=== PATIENT | female | born 1975 | race Caucasian/White ===

== ENCOUNTER → 2019-07-04 17:24 | Outpatient (CLI) | payer OTHER, SELFPAY ==
[2019-07-09 17:43] LABS: HPV Reflexed? NOT INDICATED
== END ==
PROVIDERS: Family Provider Family Medicine; PCP Family Medicine; Referring Provider Family Medicine; Visit Provider Family Medicine
DX: Z12.4 Encounter for screening for malignant neoplasm of cervix (principal)
CPT/HCPCS: 88175; G0145

== ENCOUNTER → 2019-07-30 06:54 | Outpatient (CLI) | payer OTHER, SELFPAY ==
--- NOTE | 2019-07-30 06:57 | BI_ITS ---
MAMMOGRAPHY - BILATERAL SCREENING 3-D TOMOSYNTHESIS REASON FOR EXAM: Female, 44 years old. NO FM HX , CURRENT BCP USE SINCE 1998, LT SKIN TAG MARKED AXILLA AREA PERTINENT HISTORY: No significant family history. TECHNIQUE: 2-D mammograms and 3-D Tomosynthesis of the breast (s) were performed. CAD was performed. COMPARISON: November 02, 2016. FINDINGS: The breast composition is composed of scattered fibroglandular density. Scattered benign calcifications are seen. No dense spiculated masses or suspicious microcalcifications are identified. No architectural distortion is identified. There is no skin thickening or retraction. There has been no significant change since the prior study. BI/SCREEN MAMM (CAD) W/SHANIA BILAT IMPRESSION: No mammographic signs of malignancy. Routine yearly mammograms recommended. ASSESSMENT CATEGORY: BIRADS Category 2: Benign. A letter regarding these results will be sent to the patient by the facility within 30 days. FOLLOW UP RECOMMENDATION: Yearly follow up mammogram recommended. (A) Approximately 10% of breast cancers are not detected by mammography. A normal mammogram should not delay biopsy of a clinically suspicious abnormality. Electronically Signed: Kehinde Friedman MD at 9:10 EST , Service support ,
== END ==
PROVIDERS: Family Provider Family Medicine; PCP Family Medicine; Referring Provider Family Medicine; Visit Provider Family Medicine
DX: Z12.31 Encounter for screening mammogram for malignant neoplasm of breast (principal)
CPT/HCPCS: 77063; 77067

== ENCOUNTER → 2020-07-07 15:48 | Outpatient (CLI) | payer OTHER, SELFPAY ==
[2017-07-15 14:30] VITALS: BMI 22.8
[2020-07-07 18:13] LABS: Magnesium 2.4 mg/dL (1.6-2.6)
[2020-07-07 18:17] LABS: Absolute Lymphocyte Count 1.55 X10^3/uL (0.83-4.51); Absolute Neutrophil Count 2.5 X10^3/uL (2.0-7.7); Basophil# 0.01 X10^3/uL; Basophil% 0.2 % (0-1); Eosinophil# 0.06 X10^3/uL; Eosinophils% 1.4 % (0-5); Hematocrit 40.1 % (37-47); Hemoglobin 12.1 g/dL (12.0-15.0); Lymphocyte # 1.55 X10^3/ul (4.0); Lymphocyte % 35.3 % (19-41); Mean Corp Hgb Conc 30.2 g/dL (32-36); Mean Corpuscular Hgb 25.2 pg (27.0-32.0); Mean Corpuscular Volume 83.4 fL (81-99); Mean Platelet Vol. 9.9 fl (6.2-12.0); Monocyte# 0.28 X10^3/uL; Monocyte% 6.4 % (0-10); NRBC Flagged by Analyzer 0 % (0-5); Neutrophil # 2.48 X10^3/uL (2.7-7.7); Neutrophil % 56.5 % (47-70); Platelet Count 280 K/mm3 (150-450); RBC Distribution Width CV 14.6 % (11.6-14.6); RBC Distribution Width SD 44.1 fl (35.1-43.9); Red Blood Count 4.81 M/mm3 (4.2-5.4); White Blood Count 4.4 K/mm3 (4.4-11.0)
[2020-07-08 11:42] LABS: Vitamin D,25 Hydroxy 38.8 ng/mL
== END ==
PROVIDERS: PCP Family Medicine; Referring Provider Family Medicine; Visit Provider Family Medicine
DX: G35 Multiple sclerosis (principal); K21.9 Gastro-esophageal reflux disease without esophagitis; E55.9 Vitamin D deficiency, unspecified
CPT/HCPCS: 36415; 82306; 83735; 85025

== ENCOUNTER → 2020-08-06 07:01 | Outpatient (CLI) | payer OTHER, SELFPAY ==
--- NOTE | 2020-08-06 07:04 | BI_ITS ---
MAMMOGRAPHY - BILATERAL SCREENING REASON FOR EXAM: Female, 45 years old. Routine annual screening examination. PERTINENT HISTORY: Non-contributory. TECHNIQUE: Digital bilateral breast shania (3D mammographic acquisition) in the CC and MLO projections. 2-D mediolateral oblique (MLO) and craniocaudad (CC) views of both breasts were obtained. CAD: Full Field Digital Mammography with Computer Added Detection was performed. COMPARISON: Comparison is made with prior study dated 07/30/2019 and 11/02/2016. FINDINGS: Breast Composition: There are scattered areas of fibroglandular density. There are no dominant masses or suspicious calcifications. No other significant abnormalities are identified. There has been no significant change since the prior study. BI/SCREEN MAMM (CAD) W/SHANIA BILAT IMPRESSION: Stable bilateral screening mammogram. Yearly follow-up mammogram recommended. (A) ASSESSMENT CATEGORY: BIRADS Category 1: Negative. A letter regarding these results will be sent to the patient by the facility within 30 days. Approximately 10% of breast cancers are not detected by mammography. A normal mammogram should not delay biopsy of a clinically suspicious abnormality. [id number] Electronically Signed: Joaquin Mcgill, at 8:30 EST , Service support ,
== END ==
PROVIDERS: PCP Family Medicine; Referring Provider Family Medicine; Visit Provider Family Medicine
DX: Z12.31 Encounter for screening mammogram for malignant neoplasm of breast (principal)
CPT/HCPCS: 77063; 77067

== ENCOUNTER → 2021-11-24 | Outpatient (CLI) | payer OTHER, SELFPAY ==
[2021-12-01 10:37] LABS: HPV APTIMA, High Risk Negative (Negative)
[2021-12-01 10:40] LABS: HPV Reflexed? YES, CHARGE PATIENT
== END | disposition home or self-care (01) ==
PROVIDERS: PCP Family Medicine; Visit Provider Family Medicine
DX: Z12.4 Encounter for screening for malignant neoplasm of cervix (principal)
CPT/HCPCS: 87624; 88175; G0145

== ENCOUNTER → 2021-11-27 | Outpatient (CLI) | payer OTHER, SELFPAY ==
--- NOTE | 2021-11-27 07:57 | BI_ITS ---
MAMMOGRAPHY - BILATERAL SCREENING REASON FOR EXAM: Female, 46 years old. Routine annual screening examination. PERTINENT HISTORY: Non-contributory. TECHNIQUE: Digital bilateral breast shania (3D mammographic acquisition) in the CC and MLO projections. 2-D mediolateral oblique (MLO) and craniocaudad (CC) views of both breasts were obtained. CAD: Full Field Digital Mammography with Computer Added Detection was performed. COMPARISON: Comparison is made with prior study dated 08/06/2020 and 07/30/2019. FINDINGS: Breast Composition: There are scattered areas of fibroglandular density. There are no dominant masses or suspicious calcifications. No other significant abnormalities are identified. There has been no significant change since the prior study. BI/SCRN MAMM (CAD)W/SHANIA BILAT IMPRESSION: Stable bilateral screening mammogram. Yearly follow-up mammogram recommended. (A) ASSESSMENT CATEGORY: BIRADS Category 1: Negative. A letter regarding these results will be sent to the patient by the facility within 30 days. Approximately 10% of breast cancers are not detected by mammography. A normal mammogram should not delay biopsy of a clinically suspicious abnormality. [id number] Electronically Signed: Joaquin Mcgill MD at 8:51 EDT ,
== END | disposition home or self-care (01) ==
LOC: OPBI 07:56
PROVIDERS: PCP Family Medicine; Visit Provider Family Medicine
DX: Z12.31 Encounter for screening mammogram for malignant neoplasm of breast (principal)
CPT/HCPCS: 77063; 77067

== ENCOUNTER → 2022-12-21 | Outpatient (CLI) | payer OTHER, SELFPAY ==
[2022-12-30 16:09] LABS: HPV APTIMA, High Risk Negative (Negative)
[2023-01-01 17:13] LABS: HPV Reflexed? YES, CHARGE PATIENT
== END | disposition home or self-care (01) ==
PROVIDERS: PCP Family Medicine; Visit Provider Family Medicine
DX: Z12.4 Encounter for screening for malignant neoplasm of cervix (principal)
CPT/HCPCS: 87624; 88175; G0145

== ENCOUNTER → 2022-12-24 | Outpatient (CLI) | payer OTHER, SELFPAY ==
--- NOTE | 2022-12-24 15:02 | BI_ITS ---
MAMMOGRAPHY - BILATERAL SCREENING REASON FOR EXAM: Female, 47 years old. Routine annual screening examination. PERTINENT HISTORY: Non-contributory. TECHNIQUE: Digital bilateral breast shania (3D mammographic acquisition) in the CC and MLO projections. 2-D mediolateral oblique (MLO) and craniocaudad (CC) views of both breasts were obtained. CAD: Full Field Digital Mammography with Computer Added Detection was performed. COMPARISON: Comparison is made with prior examination November 27, 2021 and August 06, 2020. FINDINGS: Breast Composition: There are scattered areas of fibroglandular density. There are no dominant masses or suspicious calcifications. Small benign-appearing left axillary lymph nodes. No other significant abnormalities are identified. There has been no significant change since the prior study. BI/SCRN MAMM (CAD)W/SHANIA BILAT IMPRESSION: Stable bilateral screening mammogram. Yearly follow-up mammogram recommended. (A) ASSESSMENT CATEGORY: BIRADS Category 2: Benign. A letter regarding these results will be sent to the patient by the facility within 30 days. Approximately 10% of breast cancers are not detected by mammography. A normal mammogram should not delay biopsy of a clinically suspicious abnormality. [id number] Electronically Signed: Joaquin Mcgill MD at 13:13 EDT ,
== END | disposition home or self-care (01) ==
LOC: OPBI 15:02
PROVIDERS: PCP Family Medicine; Referring Provider Family Medicine; Visit Provider Family Medicine
DX: Z12.31 Encounter for screening mammogram for malignant neoplasm of breast (principal)
CPT/HCPCS: 77063; 77067

== ENCOUNTER → 2023-04-15 | Outpatient (CLI) | payer OTHER, SELFPAY ==
--- NOTE | 2023-04-15 11:56 | RAD_ITS ---
STUDY: X-RAY - RIGHT KNEE REASON FOR EXAM: Female, 47 years old. Pain TECHNIQUE: 4 view(s) of the knee. COMPARISON: Comparison is made with prior study June 03, 2017. FINDINGS: Normal visualized distal femur. Normal visualized proximal tibia and fibula. Normal proximal tibiofibular articulation. Normal medial femorotibial compartment. Normal lateral femorotibial compartment. Normal patellofemoral articulation. The soft tissue structures are unremarkable. RAD/Knee 4 or More Views IMPRESSION: Normal x-ray examination of the knee. Electronically Signed: Joaquin Mcgill MD at 15:22 EDT ,
== END | disposition home or self-care (01) ==
LOC: MTRAD 11:51
PROVIDERS: PCP Family Medicine; Referring Provider Family Medicine; Visit Provider Family Medicine
DX: M25.561 Pain in right knee (principal)
CPT/HCPCS: 73564

== ENCOUNTER → 2023-12-28 | Outpatient (CLI) | payer OTHER, SELFPAY ==
--- NOTE | 2023-12-28 12:23 | BI_ITS ---
MAMMOGRAPHY - BILATERAL SCREENING REASON FOR EXAM: Female, 48 years old. Routine annual screening examination. PERTINENT HISTORY: Non-contributory. TECHNIQUE: Digital bilateral breast shania (3D mammographic acquisition) in the CC and MLO projections. 2-D mediolateral oblique (MLO) and craniocaudad (CC) views of both breasts were obtained. CAD: Full Field Digital Mammography with Computer Added Detection was performed. COMPARISON: Comparison is made with prior study December 24, 2022 and November 27, 2021. FINDINGS: Breast Composition: There are scattered areas of fibroglandular density. There are no dominant masses or suspicious calcifications. No other significant abnormalities are identified. There has been no significant change since the prior study. BI/SCRN MAMM (CAD)W/SHANIA BILAT IMPRESSION: Stable bilateral screening mammogram. Yearly follow-up mammogram recommended. (A) ASSESSMENT CATEGORY: BIRADS Category 1: Negative. A letter regarding these results will be sent to the patient by the facility within 30 days. Approximately 10% of breast cancers are not detected by mammography. A normal mammogram should not delay biopsy of a clinically suspicious abnormality. [id number] Electronically Signed: Joaquin Mcgill MD at 13:29 EDT ,
== END | disposition home or self-care (01) ==
LOC: OPBI 12:23
PROVIDERS: PCP Family Medicine; Referring Provider Family Medicine; Visit Provider Family Medicine
DX: Z12.31 Encounter for screening mammogram for malignant neoplasm of breast (principal)
CPT/HCPCS: 77063; 77067

== ENCOUNTER → 2025-02-13 | Outpatient (CLI) | payer OTHER, SELFPAY ==
[2025-02-13 10:48] LABS: Hematocrit 39.4 % (37-47); Hemoglobin 12.2 g/dL (12.0-15.0); Immature Granulocytes Count 0.010 X10^3/uL (0.0-0.0); Mean Corp Hgb Conc 31.0 g/dL (32-36); Mean Corpuscular Volume 85.8 fL (81-99); Mean Platelet Vol. 9.8 fl (6.2-12.0); NRBC Flagged by Analyzer 0 % (0-5); Platelet Count 256 K/mm3 (150-450); RBC Distribution Width CV 15.4 % (11.6-14.6); RBC Distribution Width SD 48.1 fl (35.1-43.9); Red Blood Count 4.59 M/mm3 (4.2-5.4); White Blood Count 5.4 K/mm3 (4.4-11.0)
[2025-02-13 14:37] LABS: AST(SGOT) 18 U/L (<=31); Alanine Aminotransfer ALT/SGPT 14 U/L (<=34); Albumin, Serum 4.2 g/dL (3.5-5.0); Alkaline Phosphatase 59 U/L (35-104); Anion Gap 11 (5-15); BUN 10 mg/dL (4-19); BUN/Creat Ratio 12.7 RATIO (10-20); Calcium,Total 10.5 mg/dL (7.6-11.0); Carbon Dioxide 21.2 mmol/L (21.0-32.0); Chloride 105 mmol/L (98-108); Globulin 2.8 g/dL (2.2-4.2); Glucose 105 mg/dL (70-99); Potassium 3.5 mmol/L (3.3-5.1); Vitamin B12 366 pg/mL (180-914); Vitamin D,25 Hydroxy 62.5 ng/mL (30-100)
[2025-02-19 11:08] LABS: VITAMIN B6 4.0 ug/L (3.4-65.2); Vitamin B1, Thiamine 121.7 nmol/L (66.5-200.0)
== END | disposition home or self-care (01) ==
LOC: MFPLAB 08:38
PROVIDERS: PCP Family Medicine; Referring Provider Family Medicine; Visit Provider Family Medicine
DX: R73.09 Other abnormal glucose (principal)
CPT/HCPCS: 36415; 80053; 82306; 82607; 83036; 84207; 84425; 85025

== ENCOUNTER → 2025-05-20 | Outpatient (CLI) | payer OTHER, SELFPAY ==
--- OUTSIDE RECORDS SUMMARY | 2025-05-20 06:54 | XMS RPT_ITS | CCD ---
Author Organization [facility] Inform ion Partnership [facility] Care Team Providers Care Shellfish Manager Name Role Phone Lluvia Hernandes Primary Care Provider [phone] [place] KEENE, Dr. Pedro Fang Primary Care Provider [place] KEENE, Dr. Pedro Fang Attending Provider [place] KEENE, Dr. Pedro Fang Referring Provider [place] KE[place], Dr. Pedro Fang Primary Care Physician [place] KE[place], Dr. Pedro Fang Attending Physician [phone] Valery Martinez Attending Physician [phone] JOANNE LLUVAI DOROTHY Primary Care Unavailable NABIL, GONZALO Referring Unavailable JOLLIFF, LLUVIA DOROTHY Primary Care Unavailable YOUNG, GONZALO Referring Unavailable NABIL, GONZALO Attending Unavailable JOLLIFF, LLUVIA DOROTHY Primary Care Unavailable JOLLIFF, LLUVIA DOROTHY Primary Care Unavailable YOUNG, GONZALO Referring Unavailable [place] Pedro E Referring Unavailable Valery Mejia NP Attending Unavailable Pedro Delarosa E Primary Care Unavailable Pedro Delarosa E Attending Unavailable Pedro Delarosa E Referring Unavailable Pedro Delarosa E Primary Care Unavailable Kirillorrow BABY FORMULA WORKERRichard Attending Unavailable Kirillorrow BABY FORMULA WORKERRichard Referring Unavailable Pedro Delarosa E Primary Care Unavailable AllinerPedro E Referring Unavailable Schananer Pedro E Primary Care Unavailable Vineet Llanos Attending Unavailable Allergies Allergy Classification Reported Allergen(s) Allergy Type Date of Onset Reaction(s) Facility (20 sources) Amoxicillin; Translations: [AMOXICILLIN] Drug Allergy 03-27-2019 Rash [facility] (1 source) Penicillins Allergy to substance 04-26-2025 Rash [facility] (1 source) Amoxicillin Drug Allergy 03-23-2022 [facility] (1 source) Penicillins Drug allergy (disorder) 05-17-2025 [facility] Medications Current Medications Medication Drug Class(es) Dates Sig (Normalized) Sig (Original) cholecalciferol 0.05 mg oral capsule (20 sources) Vitamin D Start: 07-15-2017 take 1 capsule by mouth once Cholecalciferol (Vitamin D3) 2,000 unit capsule Active 2000 U PO ONCE July 15, 2017 1:00am Complies with drug therapy take 1 tablet by mouth once bre y Cholecalciferol, Vitamin D3, (VITAMIN D-3) 2,000 unit tab Take 2,000 Units by mouth once daily. Active Comment on above: Take 2,000 Units by mouth once daily. dimethyl fumarate 240 mg delayed release oral capsule (20 sources) Start: 04-24-2025 End: 04-24-2025 take 1 capsule by mouth twice daily Dimethyl Fumarate 240 mg capsule,delayed release(DR/EC) Active 240 mg PO TWICE A DAY April 24, 2025 9:23am Complies with drug therapy Start: 11-08-2024 End: 01-29-2025 take 1 capsule by mouth twice daily dimethyl fumarate (TECFIDERA) [address] Take 1 capsule by mouth two times a day. 180 capsule 01/29/2025 Active Start: 04-17-2024 End: 10-02-2024 take 1 capsule by mouth twice daily dimethyl fumarate (TECFIDERA) [address] Take 1 capsule by mouth two times a day. 180 capsule 11/08/2024 Active Start: 08-10-2023 End: 03-14-2024 take 1 capsule by mouth twice daily dimethyl fumarate (TECFIDERA) [address] take 1 capsule by mouth 2 times a day 60 capsule 0 03/14/2024 Active Start: 06-08-2022 End: 06-14-2023 take 1 capsule by mouth twice daily dimethyl fumarate (TECFIDERA) [address] take 1 capsule by mouth 2 times a day 60 capsule 5 06/14/2023 Active Start: 11-11-2021 take 1 capsule by [facility] twice daily dimethyl fumarate (TECFIDERA) [address] TAKE 1 CAPSULE BY MOUTH 2 TIMES A DAY 60 capsule 5 11/11/2021 Active Start: 09-29-2021 End: 11-11-2021 take 1 capsule by mouth twice daily dimethyl fumarate (TECFIDERA) [address] TAKE ONE CAPSULE BY MOUTH TWICE DAILY. 60 capsule 0 09/29/2021 11/11/2021 Discontinued Start: 07-15-2017 End: 04-24-2025 take 1 capsule by mouth twice daily Dimethyl Fumarate (Tecfidera) 120 mg capsule,delayed release(DR/EC) Discontinued 120 mg PO TWICE A DAY July 15, 2017 1:00am April 24, 2025 9:07am Comment on above: TAKE ONE CAPSULE BY MOUTH TWICE DAILY. TAKE 1 CAPSULE BY [facility] 2 TIMES A DAY Take 1 capsule (240 mg) by mouth twice daily. esomeprazole 40 mg delayed release oral capsule (20 sources) Proton Pump Inhibitor Start: take 1 capsule by mouth once daily esomeprazole (NEXIUM) 40 mg capsule Take 1 capsule by mouth once daily. 0 04/03/2013 Active Comment on above: Take 1 capsule by [facility] once daily. ethinyl estradiol 0.02 mg / norethindrone acetate 1 mg oral tablet (20 sources) Estrogen Start: 5 Norethindrone Ac-Eth Estradiol (Junel 08/20 ()) 1-20 mg-mcg tablet Active 1 {tbl} PO daily April 24, 2025 12:00am Complies with drug therapy Start: 04-03-2013 take 0.05 ug by mouth once Nor ethindrone Acet-Ethinyl Est (MICROGESTIN 08/20) 1-20 mg-mcg per tablet Take 1 tablet by mouth once daily. 0 04/03/2013 Active Comment on above: Take 1 tablet by [facility] once daily. fluticasone propionate 0.05 mg/actuat metered dose nasal spray (1 source) Corticosteroid Start: 025 take 50 ug nasal route once daily Fluticasone Propionate (Flonase Allergy Relief) 50 mcg/actuation spray,suspension Active 1 NMA INTRANASAL daily April 24, 2025 12:00am administer into each nostril Complies with drug therapy iv contrast (will be provided with radiology test) (3 sources) Start: End: 09-18-2 024 inject 1 dose intravenously once iv contrast (will be provided with radiology test) MRI Brain Inject, intravenously, once for 1 dose.No IV access, insert saline lock prior to beginning of sedation, infusion, injection of imaging exam.Discontinue saline lock post exam. If Pt. has a central line or IVAD, may access for administration according to line specific nursing protocol.Once exam is complete flush line and de-access according to line specific nursing protocol in the MR contrast administration guidelines link 1 Each 04/17/2024 04/18/2024 Active Start: 11-02-2021 End: 11-03-2021 inject 1 dose intravenously once iv contrast (will be provided with radiology test) MRI Brain Inject, intravenously, once for 1 dose.No IV access, insert saline lock prior to beginning of sedation, infusion, injection of imaging exam.Discontinue saline lock post exam. If Pt. has a central line or IVAD, may access for administration according to line specific nursing protocol.Once exam is complete flush line and de-access according to line specific nursing protocol in the MR contrast administration guidelines link 1 Each 0 11/02/2021 11/03/2021 Active Start: 11-02-2021 End: 11-03-2021 iv contrast (will be provide d with radiology test) MRI CSP Inject, intravenously, once for 1 dose. No IV access, insert saline lock prior to the beginning of sedation, infusion, injection of imaging exam. Discontinue saline lock post exam. If Pt. has a central line or IVAD, may access for administration according to line specific nursing protocol. Once exam is complete flush line and de-access according to line specific nursing protocol in the MR contrast administration guidelines link. 1 Each 0 11/02/2021 11/03/2021 Active Comment on above: MRI Brain Inject, in travenously, once for 1 dose.No IV access, insert saline lock prior to beginning of sedation, infusion, injection of imaging exam.Discontinue saline lock post exam. If Pt. has a central line or IVAD, may access for administration according to line specific nursing protocol.Once exam is complete flush line and de-access according to line specific nursing protocol in the MR contrast administration guidelines link MRI CSP Inject, intr avenously, once for 1 dose. No IV access, insert saline lock prior to the beginning of sedation, infusion, injection of imaging exam. Discontinue saline lock post exam. If Pt. has a central line or IVAD, may access for administration according to line specific nursing protocol. Once exam is complete flush line and de-access according to line specific nursing protocol in the MR contrast administration guidelines link. lansoprazole 30 mg delayed release oral capsule (7 sources) Proton Pump Inhibitor Start: 04-24-20 take 1 capsule by mouth once daily Lansoprazole 30 mg capsule,delayed release(DR/EC) Active 30 mg PO daily April 24, 2025 9:05am Complies with drug therapy Start: 07-15-2017 End: 04-24-2025 take 1 capsule by mouth twice daily Lansoprazole 30 mg capsule,delayed release(DR/EC) Discontinued 30 mg PO TWICE A DAY July 15, 2017 1:00am April 24, 2025 9:07am levocetirizine dihydrochloride 5 mg oral tablet (20 sources) Histamine-1 Receptor Antagonist Start: 04-24-2025 take 1 tablet by mouth once daily Levocetirizine (Xyzal) 5 mg tablet Active 5 mg PO daily April 24, 2025 12:00am Complies with drug therapy levocetirizine d ihydrochloride (XYZAL ORAL) Take by mouth. Active levocetirizine d ihydrochloride (XYZAL ORAL) Take by mouth. 0 Active Comment on above: Take by mouth. melatonin 10 mg oral tablet (1 source) Start: 04-24-2025 take 1 tablet by mouth at bedtime as needed Melatonin 10 mg tablet Active 10 mg PO BEDTIME as needed April 24, 2025 12:00am Complies with drug therapy Problems Active Problems Problem Classification Problem Date Documented Date Episodic/Chronic Diabetes mellitus without complication (1 source) Other abnormal glucose; Translations: [Other abnormal glucose] Onset: 02-18-2025 Episodic Malaise and fatigue (3 sources) Malaise and fatigue; Translations: [Other malaise] Onset: 05-14-2025 07-04-2024 Episodic Menstrual disorders (4 sources) Oligomenorrhea; Translations: [Oligomenorrhea, unspecified] Onset: 04-26-2025 04-24-2025 Chronic Multiple sclerosis (20 sources) Multiple sclerosis; Translations: [Multiple sclerosis] Onset: 04-06-2013 04-06-2013 Chronic Nutritional deficiencies (3 sources) Vitamin D deficiency; Translations: [Vitamin D deficiency, unspecified] Onset: 07-06-2024 Chronic Other aftercare (1 source) Patient encounter status; Translations: [Encounter for therapeutic drug level monitoring] Episodic Other nervous system disorders (1 source) Demyelinating disease of central nervous system; Translations: [Demyelinating disease of central nervous system, unspecified] Chronic Other screening for suspected conditions (not mental disorders or infectious disease) (1 source) Encounter for screening mammogram for malignant neoplasm of breast; Translations: [Encounter for screening mammogram for malignant neoplasm of breast] Onset: 05-17-2025 Episodic Past or Other Problems Problem Classification Problem Date Documented Date Episodic/Chronic Other aftercare (11 sources) Drug therapy finding; Translations: [Encounter for therapeutic drug level monitoring] Onset: 03-09-2015 03-09-2015 Episodic Other aftercare (11 sources) Long-term current use of drug therapy; Translations: [Encounter for therapeutic drug level monitoring] Onset: 03-09-2015 03-09-2015 Episodic Other complications of (20 sources) Other specified diseases and conditions complicating , childbirth and the puerperium; Translations: [Other specified complications of , antepartum condition or complication] Onset: 11-27-2003 11-27-2003 Episodic Results Test Name Value Interpretation Reference Range Facility Urgent Care Visit Reporton 1 Urgent Care Visit Report [facility] [address], [address] [place] [address] OFFICE VISIT Date of Service: 05/17/25 MR#: [id number] Acct: [id number] Name: RICARDOANNADIANE BUSH Rep #: [id number] : 1975 Provider: ARCELIA Villafana Age/Sex: 49/F Location: [facility] Status: Signed Intake Vital Signs 04/24/25 09:12 05/17/25 06:38 Height 5 ft 2 in 5 ft 2 in Weight: 136 lb 134 lb 4 oz BMI 24.8 24.5 BP 127/89 H 102/64 Blood Pressure Location Lt brachial Lt brachial Position Sitting Sitting Respiration 16 Pulse 85 82 Pulse Source NIBP NIBP Temp 98.6 F Temp Source Oral Pulse Oximetry (%) 100 Oxygen Delivery Method room air Intake Visit Reasons: SORE THROAT, CONGESTION Chief Complaint: ST, SIMENTAL, BA, congestion, ear/face pain Waiter/Waitress Required: No Is patient in pain?: No Allergies Penicillins Allergy (Mild, Verified 05/17/25 06:39) Rash Medications ???Medication ???Instructions ???Recorded ???Confirmed ???Type cholecalciferol (vitamin D3) 50 2,000 unit PO ONCE 07/15/17 History mcg (2,000 unit) capsule dimethyl fumarate 240 mg 240 mg PO BID 04/24/25 05/17/25 Hi story capsule,delayed release fluticasone propionate 50 1 spray intranasal QDAY 04/24/25 1 History mcg/actuation nasal spray,suspension (Flonase Allergy Relief) lansoprazole 30 mg capsule,delayed 30 mg PO QDAY 04/24/25 05/17/25 History release levocetirizine 5 mg tablet (Xyzal) 5 mg PO QDAY 04/24/25 05/17/25 H istory melatonin 10 mg tablet 10 mg PO HS PRN 04/24/25 05/17/25 History norethindrone acetate 1 mg-ethinyl 1 tab PO QDAY 04/24/25 05/17/25 History estradiol 20 mcg tablet (Junel) doxycycline monohydrate 100 mg 100 mg PO BID 10 days #20 caps 05/17/25 Rx capsule ipratropium bromide 21 mcg (0.03 2 spray intranasal BID-TID PRN 05/17/25 Rx %) nasal spray postnasal drainage #30 mL Is last menstrual period known: No Post menopausal: No Patient : No Have you fallen in the past year?: No Nurse's Note: ST, SIMENTAL, BA, congestion, ear/face pain x 48 hours. pt has been sick "on and off" for over a month with only a few days between illnesses. denies fever. 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 Smoking Status: Never smoker alcohol intake: current alcohol intake frequency: a few times a week details: 1-3 per week substance use type: does not use do you feel safe at home: Yes additional social history: . [employer]. 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 HPI HPI Chief Complaint: ST, SIMENTAL, BA, congestion, ear/face pain Details: DIANE TEE, is a 49 F who presents to the office today for complaint of sore throat, headache, body aches and sinus pressure pain particular to the left side of her face. Patient states this has been ongoing for the past several days however states that she has had intermittent illness episodes over the past month. She denies fever, chills or sweats. No nausea, vomiting or diarrhea. No hemoptysis, shortness of breath or difficulty breathing. No other associated symptoms or alleviating/aggravat ing factors. ROS Const Constitutional: No other (6 system ROS completed with pertinent findings in the HPI otherwise normal.) Exam Const General: cooperative and healthy appearing HENSC Head: normal to inspection Ears: hearing grossly normal bilaterally, TM's normal bilaterally and EAC's normal Nose: nasal discharge purulent Face and sinus: sinus tenderness frontal and maxillary Mouth: oral mucosae normal Throat: abnormal tonsil bilaterally erythema and hypertrophy 1+ and postnasal drainage Resp Effort Inspection: normal respiratory effort Auscultation: Bilateral: Clear to Auscultation Cardio Palpation: normal PMI Rate: regular rate Rhythm: regular rhythm Neuro General: patient alert and CN's II-XI intact bilaterally Psych Appearance: grossly normal Mental Status: mental status grossly normal Coding Level of Care Code Off vis,new,level 3 Diagnoses Acute sinusitis J01.90 Assessment and Plan Assessment and Plan (1) Acute sinusitis: Status: Acute Plan: Doxycycline and Atrovent as prescribed today. Encouraged to get plenty of rest, drink lots of clear liquids, and use Tylenol or Ibuprofen (unless contraindi (more content not included)... Normal [facility] CBC W Auto Differential pane l (Bld)on 05-14-2025 Basophils (Bld) [#/Vol] 10*3/uL Normal <0.11 C [facility] Comment on above: Order Comment: Speci men Type: BLOOD SPECIMEN Ordering Facility: [facility] Address: [address] [place] [address] Performed By: #### 5 7021-8 #### [facility] CLIA [id number] [address] [place] [address] [place] Basophils/100 WBC (Bld) 0.4 % Normal C [facility] Comment on above: Order Comment: Speci men Type: BLOOD SPECIMEN Ordering Facility: [facility] Address: [address] [place] [address] Performed By: #### 5 7021-8 #### [facility] CLIA [id number] [address] [place] [address] [place] Differential cell count method Nom (Bld) Auto Normal [facility] Comment on above: Order Comment: Speci men Type: BLOOD SPECIMEN Ordering Facility: [facility] Address: [address] [place] [address] Performed By: #### 5 7021-8 #### [facility] CLIA [id number] [address] [place] [address] [place] Eosinophils (Bld) [#/Vol] 0.03 10*3/uL Normal <0.46 [facility] Comment on above: Order Comment: Speci men Type: BLOOD SPECIMEN Ordering Facility: [facility] Address: [address] [place] [address] Performed By: #### 5 7021-8 #### [facility] CLIA [id number] [address] [place] [address] [place] Eosinophils/100 WBC (Bld) 0.6 % Normal [facility] Comment on above: Order Comment: Speci men Type: BLOOD SPECIMEN Ordering Facility: [facility] Address: [address] [place] [address] Performed By: #### 5 7021-8 #### [facility] CLIA [id number] [address] [place] [address] [place] Erythrocyte distribution width (RBC) [Ratio] 14.1 % Normal 11.5-15.0 [facility] Comment on above: Order Comment: Speci men Type: BLOOD SPECIMEN Ordering Facility: [facility] Address: [address] [place] [address] Performed By: #### 5 7021-8 #### [facility] CLIA [id number] [address] [place] [address] [place] Hematocrit (Bld) [Volume fraction] 40.3 % Normal 36.0-46.0 [facility] Comment on above: Order Comment: Speci men Type: BLOOD SPECIMEN Ordering Facility: [facility] Address: [address] [place] [address] Performed By: #### 5 7021-8 #### [facility] CLIA [id number] [address] [place] [address] [place] Hemoglobin (Bld) [Mass/Vol] 12.7 g/dL Normal 11.5-15.5 [facility] Comment on above: Order Comment: Speci men Type: BLOOD SPECIMEN Ordering Facility: [facility] Address: [address] [place] [address] Performed By: #### 5 7021-8 #### [facility] CLIA [id number] [address] [place] [address] [place] Immature granulocytes (Bld) [#/Vol] 0.08 10*3/uL Normal <0.10 [facility] Comment on above: Order Comment: Speci men Type: BLOOD SPECIMEN Ordering Facility: [facility] Address: [address] [place] [address] Performed By: #### 5 7021-8 #### [facility] CLIA [id number] [address] [place] [address] [place] Immature granulocytes/100 WBC (Bld) 1.6 % Normal [facility] Comment on above: Order Comment: Speci men Type: BLOOD SPECIMEN Ordering Facility: [facility] Address: [address] [place], [place] [address] Performed By: #### 5 7021-8 #### [facility] CLIA [id number] [address] [place] [address] [place] Lymphocytes (Bld) [#/Vol] 1.92 10*3/uL Normal 1.00-4.00 [facility] Comment on above: Order Comment: Speci men Type: BLOOD SPECIMEN Ordering Facility: [facility] Address: [address] [place] [address] Performed By: #### 5 7021-8 #### [facility] CLIA [id number] [address] [place] [address] [place] Lymphocytes/100 WBC (Bld) 38.6 % Normal [facility] Comment on above: Order Comment: Speci men Type: BLOOD SPECIMEN Ordering Facility: [facility] Address: [address] [place] [address] Performed By: #### 5 7021-8 #### [facility] CLIA [id number] [address] [place] [address] [place] MCH (RBC) [Entitic mass] 27.0 pg Normal 26.0-34.0 [facility] Comment on above: Order Comment: Speci men Type: BLOOD SPECIMEN Ordering Facility: [facility] Address: [address] [place] [address] Performed By: #### 5 7021-8 #### [facility] CLIA [id number] [address] [place] [address] [place] MCHC (RBC) [Mass/Vol] 31.5 g/dL Normal 30.5-36.0 [facility] Comment on above: Order Comment: Speci men Type: BLOOD SPECIMEN Ordering Facility: [facility] Address: [address] [place] [address] Performed By: #### 5 7021-8 #### [facility] CLIA [id number] [address] [place] [address] [place] MCV (RBC) [Entitic vol] 85.6 fL Normal 80.0-100.0 C [facility] Comment on above: Order Comment: Speci men Type: BLOOD SPECIMEN Ordering Facility: [facility] Address: [address] [place] [address] Performed By: #### 5 7021-8 #### [facility] CLIA [id number] [address] [place] [address] [place] Monocytes (Bld) [#/Vol] 0.36 10*3/uL Normal <0.87 [facility] Comment on above: Order Comment: Speci men Type: BLOOD SPECIMEN Ordering Facility: [facility] Address: [address] [place] [address] Performed By: #### 5 7021-8 #### [facility] CLIA [id number] [address] [place] [address] [place] Monocytes/100 WBC (Bld) 7.2 % Normal C [facility] Comment on above: Order Comment: Speci men Type: BLOOD SPECIMEN Ordering Facility: [facility] Address: [address] [place] [address] Performed By: #### 5 7021-8 #### [facility] CLIA [id number] [address] [place] [address] [place] Neutrophils (Bld) [#/Vol] 2.57 10*3/uL Normal 1.45-7.50 [facility] Comment on above: Order Comment: Speci men Type: BLOOD SPECIMEN Ordering Facility: [facility] Address: [address] [place] [address] Performed By: #### 5 7021-8 #### [facility] CLIA [id number] [address] [place] [address] [place] Neutrophils/100 WBC (Bld) 51.6 % Normal [facility] Comment on above: Order Comment: Speci men Type: BLOOD SPECIMEN Ordering Facility: [facility] Address: [address] [place] [address] Performed By: #### 5 7021-8 #### [facility] CLIA [id number] [address] [place] [address] [place] Nucleated RBC (Bld) [#/Vol] 10*3/uL Normal <0.01 [facility] Comment on above: Order Comment: Speci men Type: BLOOD SPECIMEN Ordering Facility: [facility] Address: [address] [place] [address] Performed By: #### 5 7021-8 #### [facility] CLIA [id number] [address] [place] [address] [place] Nucleated RBC/100 WBC (Bld) [Ratio] 0.0 /100 WBC Normal [facility] Comment on above: Order Comment: Speci men Type: BLOOD SPECIMEN Ordering Facility: [facility] Address: [address] [place] [address] Performed By: #### 5 7021-8 #### [facility] CLIA [id number] [address] [place] [address] [place] Platelet mean volume (Bld) [Entitic vol] 9.7 fL Normal 9.0-12.7 [facility] Comment on above: Order Comment: Speci men Type: BLOOD SPECIMEN [facility] [place] Address: [address] [place] [address] Performed By: #### 5 7021-8 #### [facility] CLIA [id number] [address] [place] [address] [place] Platelets (Bld) [#/Vol] 272 10*3/uL Normal 150-400 [facility] Comment on above: Order Comment: Speci men Type: BLOOD SPECIMEN Ordering Facility: [facility] Address: [address] [place] [address] Performed By: #### 5 7021-8 #### [facility] CLIA [id number] [address] [place] [address] [place] RBC (Bld) [#/Vol] 4.71 10*6/uL Normal 3.90-5.20 [facility] Comment on above: Order Comment: Speci men Type: BLOOD SPECIMEN Ordering Facility: [facility] Address: [address] [place] [address] Performed By: #### 5 7021-8 #### [facility] CLIA [id number] [address] [place] [address] [place] WBC (Bld) [#/Vol] 4.98 10*3/uL Normal 3.70-11.00 [facility] Comment on above: Order Comment: Speci men Type: BLOOD SPECIMEN Ordering Facility: [facility] Address: [address] [place] [address] Performed By: #### 5 7021-8 #### [facility] CLIA [id number] [address] [place] [address] [place] Hepatic function 2000 panelo n 05-14-2025 Albumin [Mass/Vol] 4.6 g/dL Normal 3.9-4.9 [facility] Comment on above: Order Comment: Speci men Type: BLOOD SPECIMEN Ordering Facility: [facility] Address: [address] [place] [address] Performed By: #### 2 4325-3, 2132-04 #### [facility] CLIA [id number] [address] [place] [address] [place] ALP [Catalytic activity/Vol] 71 U/L Normal 34-123 [facility] Comment on above: Order Comment: Speci men Type: BLOOD SPECIMEN Ordering Facility: [facility] Address: [address] [place] [address] Performed By: #### 2 4325-3, 2132-04 #### [facility] CLIA [id number] [address] [place] [address] [place] ALT [Catalytic activity/Vol] 17 U/L Normal 7-38 [facility] Comment on above: Order Comment: Speci men Type: BLOOD SPECIMEN Ordering Facility: [facility] Address: [address] [place] [address] Performed By: #### 2 4325-3, 2132-04 #### [facility] CLIA [id number] [address] [place] [address] [place] AST [Catalytic activity/Vol] 19 U/L Normal 13-35 [facility] Comment on above: Order Comment: Speci men Type: BLOOD SPECIMEN Ordering Facility: [facility] Address: [address] [place] [address] Performed By: #### 2 4323, 2132-04 #### [facility] CLIA [id number] [address] [place] [address] [place] Bilirubin [Mass/Vol] 0.2 mg/dL Normal 0.2-1.3 [facility] Comment on above: Order Comment: Speci men Type: BLOOD SPECIMEN Ordering Facility: [facility] Address: [address] [place] [address] Performed By: #### 2 4323, 2132-04 #### [facility] CLIA [id number] [address] [place] [address] [place] Bilirubin.conjugated [Mass/Vol] 0.1 mg/dL Normal <0.3 [facility] Comment on above: Order Comment: Speci men Type: BLOOD SPECIMEN Ordering Facility: [facility] Address: [address] [place] [address] Performed By: #### 2 3, 2132-04 #### [facility] CLIA [id number] [address] [place] [address] [place] Protein [Mass/Vol] 7.1 g/dL Normal 6.3-8.0 [facility] Comment on above: Order Comment: Speci men Type: BLOOD SPECIMEN Ordering Facility: [facility] Address: [address] [place] [address] Performed By: #### 2 3, 2132-04 #### [facility] CLIA [id number] [address] [place] [address] [place] Vit B12 [facility] 10-14-2 025 Cobalamin (Vitamin B12) [Mass/Vol] 623 pg/mL Normal 232-1245 [facility] Comment on above: Order Comment: Speci men Type: BLOOD SPECIMEN Ordering Facility: [facility] Address: [address] [place] [address] Performed By: #### 2 4325-3, 2132-9 #### [facility] CLIA [id number] [address] [place] [address] [place] [facility] Agent Office Visit Reporton 04-24-2025 [facility] Agent Office Visit Report [facility] [address], [address] [place] [address] OFFICE VISIT Date of Service: 04/24/25 MR#: [id number] Acct: [id number] Name: DIANE TEE Rep #: [id number] : 1975 Provider: MARISOL fajardo Age/Sex: 49/F Location: [facility] Status: Signed Intake Vital Signs 04/24/25 09:03 04/24/25 09:12 Height 5 ft 2 in 5 ft 2 in Weight: 136 lb BMI 24.8 BP 127/89 H Blood Pressure Location Lt brachial Position Sitting Pulse 85 Pulse Source NIBP 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 Accompanied by: Self Is patient in pain?: No Feel stressed/tense/nervo us/anxious/difficult y sleeping: not at all Allergies amoxicillin Allergy (Mild, Verified 04/24/25 09:05) Rash Medications ???Medication ???Instructions ???Recorded ???Confirmed ???Type cholecalciferol (vitamin D3) 50 2,000 unit PO ONCE 07/15/17 History mcg (2,000 unit) capsule dimethyl fumarate 240 mg 240 mg PO BID 04/24/25 04/24/25 Hi story capsule,delayed release fluticasone propionate 50 1 spray intranasal QDAY 04/24/25 0 04/24/25 History mcg/actuation nasal spray,suspension (Flonase Allergy Relief) lansoprazole 30 mg capsule,delayed 30 mg PO QDAY 04/24/25 04/24/25 History release levocetirizine 5 mg tablet (Xyzal) 5 mg PO QDAY 04/24/25 04/24/25 H istory melatonin 10 mg tablet 10 mg PO HS PRN 04/24/25 04/24/25 History norethindrone acetate 1 mg-ethinyl 1 tab PO QDAY 04/24/25 04/24/25 History estradiol 20 mcg tablet () Is last menstrual period known: Yes Last Menstrual Period: 04/17/25 Control Method: PFS Medical History (Updated 04/24/25 @ 09:30 by Valery Mejia 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 current gender identity: female Smoking Status: Never smoker alcohol intake: current alcohol intake frequency: a few times a week details: 1-3 per week substance use type: does not use do you feel safe at home: Yes additional social history: . Rubén. 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 History Past Pregnancies Del. Date Name GA/Weeks Outcome Route Bth Weight [facility]ant [facility]24[facility]02 28 still 04/09/03 12 spontaneous 04/02/04 Chris live - full term 11/09/05 Carol live - full term HPI Encounter for routine gynecological examination Details: DIANE TEE is a 49 year old who presents for annual exam. Denies concerns. Is on OCP, no menses typically during placebo week. Last PAP: 2022 History of abnormal PAP: no Last mammogram: 2023 History of abnormal mammogram: no Colon cancer screenin Other preventative health care screenings: Luz Female Reproductive History Last Menstrual Period: 04/17/25 Questions: metrorrhagia: No, sexually active: Yes, dyspareunia: No and PCB: No ROS Const Constitutional: Denies fatigue, weight gain or weight loss Cardio Card: Denies chest pain Resp Resp: Denies cough or dyspnea on exertion GI GI: Denies abdominal pain, bloating, change in stool character, constipation or vomiting : Reports as per HPI; Denies difficulty voiding, pelvic pain, urinary frequency, urinary incontinence, urinary urgency, vaginal discharge or vaginal pruritus Exam Const General: cooperative, healthy appearing, no acute distress and well developed Orientation: alert, oriented to person and oriented to place [facility] Head: normal to inspection Neck Neck: normal visual inspection Thyroid: thyroid normal Lymphatic: no lymphadenopathy noted Chest Breast inspection: normal inspection of the breasts and normal inspection of the axillae Breast palpation: normal palpation of the breasts, normal palpation of the axillae and no axillary lymphadenopathy Resp Effort Inspection: normal respiratory effort GI Palpation: soft, no masses and nontender Rectal Exam: deferred External Female Exam: normal external appearance and normal appearance of the urethra Urethra: normal appearance of the urethra and normal palpation Speculum Exam - Vagina: normal appearance of the vagina and normal vaginal discharge Speculum Exam - Cervix: normal appearance of the cervix Bimanual Exam- Vagina Uterus: normal bimanual exam, uterine size normal, uterine shape normal and non-tender Bimanual Exam- Adnexa, other: normal a (more content not included)... Normal [facility] L3300.8200on 02-19-2025 VITAMIN B6 4.0 ug/L Normal 3.4-65.2 [facility] Comment on above: Order Comment: Test( s) 772223-Wlkzvca B6 was developed and its performance characteristics determined by [facility]. It has not been cleared or approved by the Food and Drug Administration. Result Comment: Defi ciency: <3.4 Marginal: 3.4 - 5.1 Adequate: >5.1 Performed By: #### L 3300.8200, L501.9985, L3300.8000, L503.0106, L506.1001 #### [facility] [address] [place], [place], [address] Vitamin B1, Thiamineon 02-19 VIT B1 THIAMINE 121.7 nmol/L Normal 66.5-200.0 [facility] Comment on above: Order Comment: Test( s) 650330-Mageidp B6 was developed and its performance characteristics determined by [facility]. It has not been cleared or approved by the Food and Drug Administration. Result Comment: Perf ormed at: - [facility] [id number] Finisher Hand: Demetrice Peterson MD, Phone: [phone] Performed By: #### L 3300.8200, L501.9985, L3300.8000, L503.0106, L506.1001 #### [facility] [address] [place], [place], [id number] Hemoglobin A1con 02-14-2025 HbA1c (Bld) [Mass fraction] 4.8 % Normal <=5.6 [facility] Comment on above: Order Comment: ALEXIS Fang ADD A1C TO BLOOD DRAWN 02/13/25 PER Result Comment: Norm al < 5.7 % Prediabetic 5.7 - 6.4 % Diabetic >or= 6.5 % Please note range changes. Performed By: #### L 3300.8200, L501.9985, L3300.8000, L503.0106, L506.1001 #### [facility] [address] [place], [place], [id number] Absolute lymphocyte countOrd ered By: Pedro Delarosa on 02-13-2025 Lymphocytes Auto (Unsp spec) [#/Vol] 1.44 10*3/uL 0.83-4.51 [facility] Absolute neutrophil countOrd ered By: Pedro Delarosa on 02-13-2025 Neutrophils (Bld) [#/Vol] 3.7 10*3/uL 2.0-7.7 [facility] Anion gap in Serum or Plasma Ordered By: Pedro Delarosa on 02-13-2025 Anion gap [Moles/Vol] 11 mmol/L 5-15 [facility] Automated lymphocyte count a s percentage of total leukocytesOrdered By: Pedro Delarosa on 02-13-2025 Lymphocytes/100 WBC Auto (Unsp spec) 26.8 % - [facility] BUN/creatinine ratioOrdered By: Pedro Delarosa on 02-13-2025 Urea nitrogen/Creatinine [Mass ratio] 12.7 mg/mg 10-20 [facility] Basophil percentageOrdered B y: Pedro Delarosa on 02-13-2025 Basophils/100 WBC (Bld) 0.2 % 0-1 [facility] Bilirubin, totalOrdered By: Pedro Delarosa on 02-13-2025 Bilirubin [Mass/Vol] 0.32 mg/dL 0.00-1.30 [facility] CBC W/Diff, Automatedon 01-29 Absolute Lymph 1.44 X10 3/uL Normal 0.83-4.51 [facility] Comment on above: Order Comment: Order Date: 02/13/25 Order Info: 0184-1 - CBCD Performed By: #### L 500.4050, L100.0100 #### [facility] [address] [place], [address] Absolute Neut 3.7 X10 3/uL Normal 2.0-7.7 [facility] Comment on above: Order Comment: Order Date: 02/13/25 Order Info: 0184-1 - CBCD Performed By: #### L 500.4050, L100.0100 #### [facility] [address] [place], [address] Basophils/100 WBC (Bld) 0.2 % Normal 0-1 [facility] Comment on above: Order Comment: Order Date: 02/13/25 Order Info: 0184-1 - CBCD Performed By: #### L 500.4050, L100.0100 #### [facility] [address] [place], [address] Eosinophils/100 WBC (Bld) 0.4 % Normal 0-5 [facility] Comment on above: Order Comment: Order Date: 02/13/25 Order Info: 0184-1 - CBCD Performed By: #### L 500.4050, L100.0100 #### [facility] [address] [place], [address] Erythrocyte distribution width (RBC) [Ratio] 15.4 % High 11.6-14.6 [facility] Comment on above: Order Comment: Order Date: 02/13/25 Order Info: 0184-1 - CBCD Performed By: #### L 500.4050, L100.0100 #### [facility] [address] [place], [address] Hematocrit (Bld) [Volume fraction] 39.4 % Normal 37-47 [facility] Comment on above: Order Comment: Order Date: 02/13/25 Order Info: 018- - CBCD Performed By: #### L 500.4050, L100.0100 #### [facility] [address] [place], [address] Hemoglobin (Bld) [Mass/Vol] 12.2 g/dL Normal 12.0-15.0 [facility] Comment on above: Order Comment: Order Date: 02/13/25 Order Info: 0184- - CBCD Performed By: #### L 500.4050, L100.0100 #### [facility] [address] [place], [address] IG% 0.200 Normal 0.0-0.9 [facility] Comment on above: Order Comment: Order Date: 02/13/25 Order Info: 0184- - CBCD Result Comment: IG% - Immature Granulocytes (promyelocytes, myelocytes and metamyelocytes) > 1% indicates that a LEFT SHIFT is Present. Performed By: #### L 500.4050, L100.0100 #### [facility] [address] [place], [address] Lymphocytes/100 WBC (Bld) 26.8 % Normal 19-41 [facility] Comment on above: Order Comment: Order Date: 02/13/25 Order Info: 0184- - CBCD Performed By: #### L 500.4050, L100.0100 #### [facility] [address] [place], [address] MCH (RBC) [Entitic mass] 26.6 pg Low 27.0-32.0 [facility] Comment on above: Order Comment: Order Date: 02/13/25 Order Info: 0184-1 - CBCD Performed By: #### L 500.4050, L100.0100 #### [facility] [address] [place], [address] MCHC (RBC) [Mass/Vol] 31.0 g/dL Low 32-36 [facility] Comment on above: Order Comment: Order Date: 02/13/25 Order Info: 0184-1 - CBCD Performed By: #### L 500.4050, L100.0100 #### [facility] [address] [place], [address] MCV (RBC) [Entitic vol] 85.8 fL Normal 81-99 [facility] Comment on above: Order Comment: Order Date: 02/13/25 Order Info: 0184-1 - CBCD Performed By: #### L 500.4050, L100.0100 #### [facility] [address] [place], [address] Monocytes/100 WBC (Bld) 4.5 % Normal 0-10 [facility] Comment on above: Order Comment: Order Date: 02/13/25 Order Info: 0184-1 - CBCD Performed By: #### L 500.4050, L100.0100 #### [facility] [address] [place], [address] Neutrophils/100 WBC (Bld) 67.9 % Normal 47-70 [facility] Comment on above: Order Comment: Order Date: 02/13/25 Order Info: 0184-1 - CBCD Performed By: #### L 500.4050, L100.0100 #### [facility] [address] [place], [address] Nucleated RBC (Bld) [#/Vol] 0 10*3/uL Normal 0-5 [facility] Comment on above: Order Comment: Order Date: 02/13/25 Order Info: 0184-1 - CBCD Performed By: #### L 500.4050, L100.0100 #### [facility] [address] [place], [address] Platelet mean volume (Bld) [Entitic vol] 9.8 fL Normal 6.2-12.0 [facility] Comment on above: Order Comment: Order Date: 02/13/25 Order Info: 0184-1 - CBCD Performed By: #### L 500.4050, L100.0100 #### [facility] [address] [place], [address] Platelets (Bld) [#/Vol] 256 10*3/uL Normal 150-450 [facility] Comment on above: Order Comment: Order Date: 02/13/25 Order Info: 0184-1 - CBCD Performed By: #### L 500.4050, L100.0100 #### [facility] [address] [place], [address] RBC (Bld) [#/Vol] 4.59 10*6/uL Normal 4.2-5.4 [facility] Comment on above: Order Comment: Order Date: 02/13/25 Order Info: 0184-1 - CBCD Performed By: #### L 500.4050, L100.0100 #### [facility] [address] [place], [address] RDW SD 48.1 fl High 35.1-43.9 [facility] Comment on above: Order Comment: Order Date: 02/13/25 Order Info: 0184-1 - CBCD Performed By: #### L 500.4050, L100.0100 #### [facility] [address] [place], [address] WBC (Bld) [#/Vol] 5.4 10*3/uL Normal 4.4-11.0 [facility] Comment on above: Order Comment: Order Date: 02/13/25 Order Info: 0184-1 - CBCD Performed By: #### L 500.4050, L100.0100 #### [facility] [address] [place], [address] Carbon dioxide, total [Moles /volume] in Central venous bloodOrdered By: Pedro Delarosa on 02-13-2025 CO2 [Moles/Vol] 21.2 mmol/L 21.0-32.0 [facility] Chloride assayOrdered By: Trisha Delarosa on 02-13-2025 Chloride [Moles/Vol] 105 mmol/L 98-108 [facility] Comprehensive Metabolic Prof ilon 02-13-2025 Albumin [Mass/Vol] 4.2 g/dL Normal 3.5-5.0 [facility] Comment on above: Order Comment: Order Date: 02/13/25 Order Info: 0786-1 - CMP Performed By: #### L 500.4050, L100.0100 #### [facility] [address] [place], [address] Albumin/Globulin [Mass ratio] 1.5 {ratio} Normal 0.9-2.4 [facility] Comment on above: Order Comment: Order Date: 02/13/25 Order Info: 0786-1 - CMP Performed By: #### L 500.4050, L100.0100 #### [facility] [address] [place], [address] ALK PHOS 59 U/L Normal 35-104 [facility] Comment on above: Order Comment: Order Date: 02/13/25 Order Info: 0786-1 - CMP Performed By: #### L 500.4050, L100.0100 #### [facility] [address] [place], [address] ALT [Catalytic activity/Vol] 14 U/L Normal <=34 [facility] Comment on above: Order Comment: Order Date: 02/13/25 Order Info: 0786-1 - CMP Performed By: #### L 500.4050, L100.0100 #### [facility] [address] [place], [address] AST [Catalytic activity/Vol] 18 U/L Normal <=31 [facility] Comment on above: Order Comment: Order Date: 02/13/25 Order Info: 0786-1 - CMP Performed By: #### L 500.4050, L100.0100 #### [facility] [address] [place], [address] Bilirubin [Mass/Vol] 0.32 mg/dL Normal 0.00-1.30 [facility] Comment on above: Order Comment: Order Date: 02/13/25 Order Info: 0786-1 - CMP Performed By: #### L 500.4050, L100.0100 #### [facility] [address] [place], [address] BUN/CRE 12.7 RATIO Normal 10-20 [facility] Comment on above: Order Comment: Order Date: 02/13/25 Order Info: 0786-1 - CMP Performed By: #### L 500.4050, L100.0100 #### [facility] [address] [place], [address] Calcium [Mass/Vol] 10.5 mg/dL Normal 7.6-11.0 [facility] Comment on above: Order Comment: Order Date: 02/13/25 Order Info: 0786-1 - CMP Performed By: #### L 500.4050, L100.0100 #### [facility] [address] [place], [address] Chloride [Moles/Vol] 105 mmol/L Normal 98-108 [facility] Comment on above: Order Comment: Order Date: 02/13/25 Order Info: 0786-1 - CMP Performed By: #### L 500.4050, L100.0100 #### [facility] [address] [place], [address] CO2 [Moles/Vol] 21.2 mmol/L Normal 21.0-32.0 [facility] Comment on above: Order Comment: Order Date: 02/13/25 Order Info: 0786-1 - CMP Performed By: #### L 500.4050, L100.0100 #### [facility] [address] [place], [address] Creatinine [Mass/Vol] 0.79 mg/dL Normal 0.70-1.20 [facility] Comment on above: Order Comment: Order Date: 02/13/25 Order Info: 0786-1 - CMP Performed By: #### L 500.4050, L100.0100 #### [facility] [address] [place], [address] GAP 11 Normal 5-15 [facility] Comment on above: Order Comment: Order Date: 02/13/25 Order Info: 0786-1 - CMP Performed By: #### L 500.4050, L100.0100 #### [facility] [address] [place], [address] GFR/1.73 sq M.predicted among non-blacks MDRD (S/P/Bld) [Vol rate/Area] 92 mL/min/{1.73_m2} Normal >60 [facility] Comment on above: Order Comment: Order Date: 02/13/25 Order Info: 0786-1 - CMP Result Comment: mL/m in/1.73m2 CKD-EPI Creatinine Equation (2020) Performed By: #### L 500.4050, L100.0100 #### [facility] [address] [place], [address] Globulin (S) [Mass/Vol] 2.8 g/dL Normal 2.2-4.2 [facility] Comment on above: Order Comment: Order Date: 02/13/25 Order Info: 0786-1 - CMP Performed By: #### L 500.4050, L100.0100 #### [facility] [address] [place], [address] Glucose [Mass/Vol] 105 mg/dL High 70-99 [facility] Comment on above: Order Comment: Order Date: 02/13/25 Order Info: 0786-1 - CMP Performed By: #### L 500.4050, L100.0100 #### [facility] [address] [place], [address] Potassium [Moles/Vol] 3.5 mmol/L Normal 3.3-5.1 [facility] Comment on above: Order Comment: Order Date: 02/13/25 Order Info: 0786-1 - CMP Performed By: #### L 500.4050, L100.0100 #### [facility] [address] [place], [address] Sodium [Moles/Vol] 138 mmol/L Normal 133-145 [facility] Comment on above: Order Comment: Order Date: 02/13/25 Order Info: 0786-1 - CMP Performed By: #### L 500.4050, L100.0100 #### [facility] [address] [place], [address] T PROT 7.0 g/dL Normal 5.9-8.4 [facility] Comment on above: Order Comment: Order Date: 02/13/25 Order Info: 0786-1 - CMP Performed By: #### L 500.4050, L100.0100 #### [facility] [address] [place], [address] Urea nitrogen [Mass/Vol] 10 mg/dL Normal 4-19 [facility] Comment on above: Order Comment: Order Date: 02/13/25 Order Info: 0786-1 - CMP Performed By: #### L 500.4050, L100.0100 #### [facility] [address] [place], [address] Eosinophil percentageOrdered By: Pedro Delarosa on 02-13-2025 Eosinophils/100 WBC (Bld) 0.4 % 0-5 [facility] Erythrocyte distribution wid th ratioOrdered By: Pedro Delarosa on 02-13-2025 Erythrocyte distribution width (RBC) [Ratio] 15.4 % High 11.6-14.6 [facility] Erythrocyte distribution wid th standard deviationOrdered By: Pedro Delarosa on 02-13-2025 Erythrocyte distribution width (RBC) [Ratio] 48.1 fl High 35.1-43.9 [facility] Glomerular filtration rate ( GFR) estimation/1.73 sq m using serum, plasma, or whole bOrdered By: Pedro Delarosa on 02-13-2025 GFR/1.73 sq M.predicted among non-blacks MDRD (S/P/Bld) [Vol rate/Area] 92 mL/min/{1.73_m2} >60 [facility] Comment on above: mL/min/1.73m2 CKD-EP I Creatinine Equation (2020) Hematocrit Auto (Bld) [Volum e fraction]Ordered By: Pedro Delarosa on 02-13-2025 Hematocrit (Bld) [Volume fraction] 39.4 % 37-47 [facility] Hemoglobin A1c percentageOrd ered By: Pedro Delarosa on 02-13-2025 HbA1c (Bld) [Mass fraction] 4.8 % <5.7 [facility] Comment on above: Normal < 5.7 % Predi abetic 5.7 - 6.4 % Diabetic >or= 6.5 % Please note range changes. Hemoglobin measurementOrdere d By: Pedro Delarosa on 02-13-2025 Hemoglobin (Bld) [Mass/Vol] 12.2 g/dL 12.0-15.0 [facility] Immature granulocytes/100 WB C Auto (Bld)Ordered By: Pedro Delarosa on 02-13-2025 Immature granulocytes/100 WBC (Bld) 0.200 % 0.0-0.9 [facility] Comment on above: IG% - Immature Granu locytes (promyelocytes, myelocytes and metamyelocytes) > 1% indicates that a LEFT SHIFT is Present. Laboratory - Chemistry and C hemistry - challengeOrdered By: Pedro Delarosa on 02-13-2025 AST [Catalytic activity/Vol] 18 U/L <32 [facility] MCV (mean corpuscular volume ) determinationOrdered By: Pedro Delarosa on 02-13-2025 MCV (RBC) [Entitic vol] 85.8 fL 81-99 [facility] Mean corpuscular hemoglobin (MCH) determinationOrdered By: Pedro Delarosa on 02-13-2025 MCH (RBC) [Entitic mass] 26.6 pg Low 27.0-32.0 [facility] Mean corpuscular hemoglobin concentration (MCHC) determinationOrdered By: Pedor Delarosa on 02-13-2025 MCHC (RBC) [Mass/Vol] 31.0 g/dL Low 32-36 [facility] Mean platelet volume determi nationOrdered By: Pedro Delarosa on 02-13-2025 Platelet mean volume (Bld) [Entitic vol] 9.8 fL 6.2-12.0 [facility] Monocyte percentageOrdered B y: Pedro Delarosa on 02-13-2025 Monocytes/100 WBC (Bld) 4.5 % 0-10 [facility] Neutrophil percentageOrdered By: Pedro Delarosa on 02-13-2025 Neutrophils/100 WBC (Bld) 67.9 % 47-70 [facility] Nucleated red blood cell per centageOrdered By: Pedro Delarosa on 02-13-2025 Nucleated RBC/100 WBC (Bld) [Ratio] 0 % 0-5 [facility] Platelet countOrdered By: Trisha Delarosa on 02-13-2025 Platelets (Bld) [#/Vol] 256 10*3/uL 150-450 [facility] Potassium measurement (mass/ volume)Ordered By: Pedro Delarosa on 02-13-2025 Potassium (Unsp spec) [Mass/Vol] 3.5 mmol/L 3.3-5.1 [facility] RBC Auto (Bld) [#/Vol]Ordere d By: Pedro Delarosa on 02-13-2025 RBC (Bld) [#/Vol] 4.59 10*6/uL 4.2-5.4 [facility] Serum creatinine measurement (mass/volume)Ordered By: Pedro Delarosa on 02-13-2025 Creatinine [Mass/Vol] 0.79 mg/dL 0.70-1.20 [facility] Serum globulin measurementOr dered By: Pedro Delarosa on 02-13-2025 Globulin (S) [Mass/Vol] 2.8 g/dL 2.2-4.2 [facility] Serum glucose measurement (m ass/volume)Ordered By: Pedro Delarosa on 02-13-2025 Glucose [Mass/Vol] 105 mg/dL High 70-99 [facility] Serum or plasma alanine dean otransferase (ALT) measurementOrdered By: Pedro Delarosa on 02-13-2025 ALT [Catalytic activity/Vol] 14 U/L <35 [facility] Serum or plasma albumin nadia urement (mass/volume)Ordered By: Pedro Delarosa on 02-13-2025 Albumin [Mass/Vol] 4.2 g/dL 3.5-5.0 [facility] Serum or plasma albumin/glob ulin mass ratioOrdered By: Pedro Delarosa on 02-13-2025 Albumin/Globulin [Mass ratio] 1.5 {ratio} 0.9-2.4 [facility] Serum or plasma alkaline aaliyah sphatase measurementOrdered By: Pedro Delarosa on 02-13-2025 ALP [Catalytic activity/Vol] 59 U/L 35-104 [facility] Serum or plasma calcium nadia urement (mass/volume)Ordered By: Pedro Delarosa on 02-13-2025 Calcium [Mass/Vol] 10.5 mg/dL 7.6-11.0 [facility] Serum or plasma thiamine darrian surement (mass/volume)Ordered By: Pedro Delarosa on 02-13-2025 Thiamine [Mass/Vol] 121.7 nmol/L 66.5-200.0 [facility] Comment on above: Performed at: [address] [id number] Director: Demetrice Peterson MD, Phone: [phone] Serum or plasma urea nitroge n measurement (mass/volume)Ordered By: Pedro Delarosa on 02-13-2025 Urea nitrogen [Mass/Vol] 10 mg/dL 4-19 [facility] Sodium levelOrdered By: Pedro Delarosa on 02-13-2025 Sodium [Moles/Vol] 138 mmol/L 133-145 [facility] Total proteinOrdered By: Jair Delarosa on 02-13-2025 Protein [Mass/Vol] 7.0 g/dL 5.9-8.4 [facility] Vitamin B12on 02-13-2025 Cobalamin (Vitamin B12) [Mass/Vol] 366 pg/mL Normal 180-914 [facility] Comment on above: Order Comment: Order Date: 02/13/25 Order Info: 0786-1 - CMP Performed By: #### L 3300.8200, L501.9985, L3300.8000, L503.0106, L506.1001 #### [facility] [address] [place], [address] Vitamin B12 ser/plasOrdered By: Pedro Delarosa on 02-13-2025 Cobalamin (Vitamin B12) [Mass/Vol] 366 pg/mL 180-914 [facility] Vitamin D,25 Hydroxyon 02-13 Vitamin D 25-OH 62.5 ng/mL Normal 30-100 [facility] Comment on above: Order Comment: Order Date: 02/13/25 Order Info: 0786-1 - CMP Result Comment: Kaylynn min D Status Deficiency: <20 ng/mL (50nmol/L) Insufficiency: 20-30 ng/mL (50-75 nmol/L) Sufficiency: 30-100 ng/mL (75-250 nmol/L) Toxicity: >100 ng/mL (>250 nmol/L) Performed By: #### L 3300.8200, L501.9985, L3300.8000, L503.0106, L506.1001 #### [facility] [address] [place], [address] White blood cell (WBC) count Ordered By: Pedro Delarosa on 02-13-2025 WBC (Bld) [#/Vol] 5.4 10*3/uL 4.4-11.0 [facility] CNPNon 10-29-2024 CNPN Telephone ([facility]) DIANE TEE ([id number]) 1975 F Date Time Provider Department 10/29/24 GONZALO MINOR During your visit today, we recorded the following information about you: Jessenia Cruz 10/29/2024 2:26 PM Signed Jeffry Call Name of caller : Diane Tee Relationship to patient: Self Return call phone number : [phone] Reason for call : Medication : Name : Tecfidera 240 mg. MARKELL Questions/concern : Patient calling and still trying to get her above med that is MARKELL. I did a PA but now she was told it was denied and I told patient the questions stated that Dimethyl Fumarate is what they will pay for and she was told she can get name brand with co-pay assistance and pay nothing but I told her that her insurance has to approve this and that [facility] would need to run this under the co-pay and see what happens. She has some left but not sure what to do now. Please call to discuss further and what you think as well. PHARMACY name : Gonzalo Jones PA-C 10/30/2024 5:25 PM Signed Patient has been on DMF since 2022. Unlikely insurance will cover brand Tecfidera since she has been tolerating generic. If cost too much with insurance, can look into alternatives ([facility], [employer]). Please reach out to her with options. VASHTI Hernandez Alexandra, RN 11/01/2024 4:54 PM Signed RN called patient to discuss pharmacy options, no answer. Left VM to call office back. Will also send MCM. GREGORIO [place] Mariah [facility] 11/08/2024 1:12 PM Signed Patient called back and wanted to have name brand appealed advised we can not appeal with documentation that there is a trial and failure of the generic. Patient advised they did not realize that. Gave [facility] pricing patient advised they are reaching out to their HR to see if there is anything else they can do to get free drug name brand. Demi Barker 11/08/2024 1:29 PM Signed Patient called back to request a 90 day supply of dimethyl fumarate Rx sent to [facility]; per her HR Department. Rx request for dimethyl fumarate sent to provider for approval. 11/08/2024 Demi Allergies As of Date: 10/29/2024 Noted Allergy Reaction AMOXICILLIN 03/27/2019 2 - Rash Date Reviewed: 11/02/2021 Reviewed by: Estella Denson APRN.MEDART OPERATOR - Fully Assessed Reason for Visit: Medication Problem [65] Cmt: Tecfidera Prescriptions as of 11/08/2024 - TECFIDERA [address] Take 1 capsule by mouth two times a day. - levocetirizine dihydrochloride (XYZAL ORAL) Take by mouth. - Cholecalciferol, Vitamin D3, (VITAMIN D-3) 2,000 unit tab Take 2,000 Units by mouth once daily. - Norethindrone Acet-Ethinyl Est (MICROGESTIN 08/20) 1-20 mg-mcg per tablet Take 1 tablet by mouth once daily. - esomeprazole (NEXIUM) 40 mg capsule Take 1 capsule by mouth once daily. Problem List As Of Date 10/29/2024 Noted Resolved PREG COMPL NEC-ANTEPART [O99.89] 11/27/2003 MS (multiple sclerosis) [G35] 04/06/2013 Encounter for monitoring immunomodulating thera*03/09/2015 Encounter Status:Closed by JORGE CERVANTES on 11/01/24 [facility] DIANE TEE ([id number]) 1975 F Date Time Provider Department 07/13/24 GONZALO MINOR During your visit today, we recorded the following information about you: Jorge Cervantes RN 07/13/2024 12:18 PM Signed Called patient, no answer. Left VM to check [employer] message or call office back. [employer] message sent. GREGORIO Hills Allergies As of Date: 07/13/2024 Noted Allergy Reaction AMOXICILLIN 03/27/2019 2 - Rash Date Reviewed: 11/02/2021 Reviewed by: Estella Denson APRN.MEDART OPERATOR - Fully Assessed Prescriptions as of 07/13/2024 - dimethyl fumarate (TECFIDERA) [address] take 1 capsule by mouth 2 times a day - levocetirizine dihydrochloride (XYZAL ORAL) Take by mouth. - Cholecalciferol, Vitamin D3, (VITAMIN D-3) 2,000 unit tab Take 2,000 Units by mouth once daily. - Norethindrone Acet-Ethinyl Est (MICROGESTIN 08/20) 1-20 mg-mcg per tablet Take 1 tablet by mouth once daily. - esomeprazole (NEXIUM) 40 mg capsule Take 1 capsule by mouth once daily. Problem List As Of Date 07/13/2024 Noted Resolved PREG COMPL NEC-ANTEPART [O99.89] 11/27/2003 MS (multiple sclerosis) [G35] 04/06/2013 Encounter for monitoring immunomodulating thera*03/09/2015 Encounter Status:Closed by JORGE CERVANTES on 07/13/24 Normal [facility] 25(OH)D3 Denal-sean 2023 25-hydroxyvitamin D3 [Mass/Vol] 61.8 ng/mL Normal 31.0-80.0 [facility] Comment on above: Order Comment: Speci men Type: BLOOD SPECIMEN Ordering Facility: [facility] Address: [address] [place] [address] Result Comment: Clas sification of 25 [place] Vitamin D status: Deficiency/Insufficiency: < or = 30 ng/ml. Sufficiency/Optimal Levels: 31-80 ng/mL Toxicity: > 100 ng/mL. Test performed by chemiluminescent immunoassay. Performed By: #### 1 989-3 #### [facility] CLIA [id number] [address] [place] [address] [place] [address] [place] CBC W Auto Differential pane l (Bld)on 07-06-2024 Basophils (Bld) [#/Vol] 10*3/uL Normal <0.11 C [facility] Comment on above: Order Comment: Speci men Type: BLOOD SPECIMEN Ordering Facility: [facility] Address: [address] [place] [address] Performed By: #### 5 7021-8 #### [facility] CLIA [id number] [address] [place] [address] [place] Basophils/100 WBC (Bld) 0.2 % Normal C [facility] Comment on above: Order Comment: Speci men Type: BLOOD SPECIMEN Ordering Facility: [facility] Address: [address] [place] [address] Performed By: #### 5 7021-8 #### [facility] CLIA [id number] [address] [place] [address] [place] Differential cell count method Nom (Bld) Auto Normal [facility] Comment on above: Order Comment: Speci men Type: BLOOD SPECIMEN Ordering Facility: [facility] Address: [address] [place] [address] Performed By: #### 5 7021-8 #### [facility] CLIA [id number] [address] [place] [address] [place] Eosinophils (Bld) [#/Vol] 0.06 10*3/uL Normal <0.46 [facility] Comment on above: Order Comment: Speci men Type: BLOOD SPECIMEN Ordering Facility: [facility] Address: [address] [place] [address] Performed By: #### 5 7021-8 #### [facility] CLIA [id number] [address] [place] [address] [place] Eosinophils/100 WBC (Bld) 1.0 % Normal [facility] Comment on above: Order Comment: Speci men Type: BLOOD SPECIMEN Ordering Facility: [facility] Address: [address] [place], [place] [address] Performed By: #### 5 7021-8 #### [facility] CLIA [id number] [address] [place] [address] [place] Erythrocyte distribution width (RBC) [Ratio] 15.4 % High 11.5-15.0 [facility] Comment on above: Order Comment: Speci men Type: BLOOD SPECIMEN Ordering Facility: [facility] Address: [address] [place] [address] Performed By: #### 5 7021-8 #### [facility] CLIA [id number] [address] [place] [address] [place] Hematocrit (Bld) [Volume fraction] 38.0 % Normal 36.0-46.0 [facility] Comment on above: Order Comment: Speci men Type: BLOOD SPECIMEN Ordering Facility: [facility] Address: [address] [place] [address] Performed By: #### 5 7021-8 #### [facility] CLIA [id number] [address] [place] [address] [place] Hemoglobin (Bld) [Mass/Vol] 12.2 g/dL Normal 11.5-15.5 [facility] Comment on above: Order Comment: Speci men Type: BLOOD SPECIMEN Ordering Facility: [facility] Address: [address] [place] [address] Performed By: #### 5 7021-8 #### [facility] CLIA [id number] [address] [place] [address] [place] Immature granulocytes (Bld) [#/Vol] 10*3/uL Normal <0.10 [facility] Comment on above: Order Comment: Speci men Type: BLOOD SPECIMEN Ordering Facility: [facility] Address: [address] [place] [address] Performed By: #### 5 7021-8 #### [facility] CLIA [id number] [address] [place] [address] [place] Immature granulocytes/100 WBC (Bld) 0.0 % Normal [facility] Comment on above: Order Comment: Speci men Type: BLOOD SPECIMEN Ordering Facility: [facility] Address: [address] [place] [address] Performed By: #### 5 7021-8 #### [facility] CLIA [id number] [address] [place] [address] [place] Lymphocytes (Bld) [#/Vol] 2.43 10*3/uL Normal 1.00-4.00 [facility] Comment on above: Order Comment: Speci men Type: BLOOD SPECIMEN Ordering Facility: [facility] Address: [address] [place] [address] Performed By: #### 5 7021-8 #### [facility] CLIA [id number] [address] [place] [address] [place] Lymphocytes/100 WBC (Bld) 38.9 % Normal [facility] Comment on above: Order Comment: Speci men Type: BLOOD SPECIMEN Ordering Facility: [facility] Address: [address] [place] [address] Performed By: #### 5 7021-8 #### [facility] CLIA [id number] [address] [place] [address] [place] MCH (RBC) [Entitic mass] 28.4 pg Normal 26.0-34.0 [facility] Comment on above: Order Comment: Speci men Type: BLOOD SPECIMEN Ordering Facility: [facility] Address: [address] [place] [address] Performed By: #### 5 7021-8 #### [facility] CLIA [id number] [address] [place] [address] [place] MCHC (RBC) [Mass/Vol] 32.1 g/dL Normal 30.5-36.0 [facility] Comment on above: Order Comment: Speci men Type: BLOOD SPECIMEN Ordering Facility: [facility] Address: [address] [place] [address] Performed By: #### 5 7021-8 #### [facility] CLIA [id number] [address] [place] [address] [place] MCV (RBC) [Entitic vol] 88.4 fL Normal 80.0-100.0 C [facility] Comment on above: Order Comment: Speci men Type: BLOOD SPECIMEN Ordering Facility: [facility] Address: [address] [place] [address] Performed By: #### 5 7021-8 #### [facility] CLIA [id number] [address] [place] [address] [place] Monocytes (Bld) [#/Vol] 0.40 10*3/uL Normal <0.87 [facility] Comment on above: Order Comment: Speci men Type: BLOOD SPECIMEN Ordering Facility: [facility] Address: [address] [place] [address] Performed By: #### 5 7021-8 #### [facility] CLIA [id number] [address] [place] [address] [place] Monocytes/100 WBC (Bld) 6.4 % Normal C [facility] Comment on above: Order Comment: Speci men Type: BLOOD SPECIMEN Ordering Facility: [facility] Address: [address] [place] [address] Performed By: #### 5 7021-8 #### [facility] CLIA [id number] [address] [place] [address] [place] Neutrophils (Bld) [#/Vol] 3.35 10*3/uL Normal 1.45-7.50 [facility] Comment on above: Order Comment: Speci men Type: BLOOD SPECIMEN Ordering Facility: [facility] Address: [address] [place] [address] Performed By: #### 5 7021-8 #### [facility] CLIA [id number] [address] [place] [address] [place] Neutrophils/100 WBC (Bld) 53.5 % Normal [facility] Comment on above: Order Comment: Speci men Type: BLOOD SPECIMEN Ordering Facility: [facility] Address: [address] [place] [address] Performed By: #### 5 7021-8 #### [facility] CLIA [id number] [address] [place] [address] [place] Nucleated RBC (Bld) [#/Vol] 10*3/uL Normal <0.01 [facility] Comment on above: Order Comment: Speci men Type: BLOOD SPECIMEN Ordering Facility: [facility] Address: [address] [place] [address] Performed By: #### 5 7021-8 #### [facility] CLIA [id number] [address] [place] [address] [place] Nucleated RBC/100 WBC (Bld) [Ratio] 0.0 /100 WBC Normal [facility] Comment on above: Order Comment: Speci men Type: BLOOD SPECIMEN Ordering Facility: [facility] Address: [address] [place] [address] Performed By: #### 5 7021-8 #### [facility] CLIA [id number] [address] [place] [address] [place] Platelet mean volume (Bld) [Entitic vol] 10.3 fL Normal 9.0-12.7 [facility] Comment on above: Order Comment: Speci men Type: BLOOD SPECIMEN Ordering Facility: [facility] Address: [address] [place] [address] Performed By: #### 5 7021-8 #### [facility] CLIA [id number] [address] [place] [address] [place] Platelets (Bld) [#/Vol] 249 10*3/uL Normal 150-400 [facility] Comment on above: Order Comment: Speci men Type: BLOOD SPECIMEN Ordering Facility: [facility] Address: [address] [place] [address] Performed By: #### 5 7021-8 #### [facility] CLIA [id number] [address] [place] [address] [place] RBC (Bld) [#/Vol] 4.30 10*6/uL Normal 3.90-5.20 [facility] Comment on above: Order Comment: Speci men Type: BLOOD SPECIMEN Ordering Facility: [facility] Address: [address] [place] [address] Performed By: #### 5 7021-8 #### [facility] CLIA [id number] [address] [place] [address] [place] WBC (Bld) [#/Vol] 6.25 10*3/uL Normal 3.70-11.00 [facility] Comment on above: Order Comment: Speci men Type: BLOOD SPECIMEN Ordering Facility: [facility] Address: [address] [place] [address] Performed By: #### 5 7021-8 #### [facility] CLIA [id number] [address] [place] [address] [place] Hepatic function 2000 panelo n 07-06-2024 Albumin [Mass/Vol] 4.4 g/dL Normal 3.9-4.9 [facility] Comment on above: Order Comment: Speci men Type: BLOOD SPECIMEN Ordering Facility: [facility] Address: [address] [place] [address] Performed By: #### 2 4325-3, 2132-9 #### [facility] CLIA [id number] [address] [place] [address] [place] ALP [Catalytic activity/Vol] 67 U/L Normal 34-123 [facility] Comment on above: Order Comment: Speci men Type: BLOOD SPECIMEN Ordering Facility: [facility] Address: [address] [place] [address] Performed By: #### 2 4325-3, 2132-04 #### [facility] CLIA [id number] [address] [address] [place] ALT [Catalytic activity/Vol] 19 U/L Normal 7-38 [facility] Comment on above: Order Comment: Speci men Type: BLOOD SPECIMEN Ordering Facility: [facility] Address: [address] [id number] Performed By: #### 2 4324-3, 2132-04 #### [facility] CLIA [id number] [address] [place] [address] [place] AST [Catalytic activity/Vol] 17 U/L Normal 13-35 [facility] Comment on above: Order Comment: Speci men Type: BLOOD SPECIMEN Ordering Facility: [facility] Address: [address] [place] [address] Performed By: #### 2 3, 2132-04 #### [facility] CLIA [id number] [address] [place] [id number] [place] Bilirubin [Mass/Vol] 0.2 mg/dL Normal 0.2-1.3 [facility] Comment on above: Order Comment: Speci men Type: BLOOD SPECIMEN Ordering Facility: [facility] Address: [address] [place], [place] [address] Performed By: #### 2 3, 2132-04 #### [facility] CLIA [id number] [address] [id number] [place] Bilirubin.conjugated [Mass/Vol] mg/dL Normal <0.2 [facility] Comment on above: Order Comment: Speci men Type: BLOOD SPECIMEN Ordering Facility: [facility] Address: [address] [id number] Performed By: #### 2 4325-3, 2132-04 #### [facility] CLIA [id number] [address] [place] [address] [place] Protein [Mass/Vol] 7.0 g/dL Normal 6.3-8.0 [facility] Comment on above: Order Comment: Speci men Type: BLOOD SPECIMEN Ordering Facility: [facility] Address: [address] [place] [address] Performed By: #### 2 4325-3, 2132-04 #### [facility] CLIA [id number] [address] [place] [address] [place] Vit B12 [facility] 07-06- 024 Cobalamin (Vitamin B12) [Mass/Vol] 219 pg/mL Low 232-1245 [facility] Comment on above: Order Comment: Speci men Type: BLOOD SPECIMEN Ordering Facility: [facility] Address: [address] [place] [address] Performed By: #### 2 4325-3, 2132-04 #### [facility] CLIA [id number] [address] [place] [address] [place] [facility] Brain Enhancing Lesions None C [facility] Brain Interval Improvement None [facility] Brain New T2 Lesions None Site [facility] Brain Other Significant MRI Findings None. [facility] Brain Parenchymal Volume Loss Mild [facility] Brain T2 Sheldon of Disease Moderate [facility] MR Brain WO and W contrast I Von 06-25-2024 IMPRESSION: Multiple intracranial white matter lesions compatible with multiple sclerosis. No new T2 lesions and no new enhancing lesions. Mild parenchymal volume loss. Other Significant Intracranial Findings: None Film Process Operator: PSCB Transcribe Date/Time: Jun 25 2024 3:34P Dictated by : ROGE TOBIAS MD This examination was interpreted and the report reviewed and electronically signed by: ROGE TOBIAS MD on Jun 25 2024 3:39PM [facility] DIVISION OF RADIOLOGY * * *Final Report* * * DATE OF EXAM: Jun 25 2024 3:00PM [facility] 0295 - MRI BRAIN WO/W IVCON / PROCEDURE REASON: Multiple sclerosis (HCC) * * * * Physician Interpretation * * * * EXAMINATION: MRI BRAIN WO/W IVCON HISTORY: Multiple sclerosis. Routine follow-up TECHNIQUE: Brain MRI with demyelinating disease protocol with and without IV gadolinium. MQ: MRBMSWOW_2 Contrast: 11 mL Dotarem IV COMPARISON: MR brain 06/20/2023 RESULT: MR BRAIN: Parenchymal Findings: There are multiple foci of hyperintensity on FLAIR and T2 within the white matter, compatible with the clinical diagnosis of multiple sclerosis. New T2 Lesions: None Site(s) of New/Larger T2 Lesion(s): Not applicable Interval Improvement: None. New Enhancing Lesions: None T2 Sheldon of Disease: Moderate. Parenchymal Volume Loss: Mild. Other Significant Findings: None. Minimal mucosal thickening in the right maxillary sinus inferiorly. *Note: The definition of new T2 Lesions includes both new and enlarging plaques on T2-weighted FLAIR images (new lesions greater than or equal to 5mm3 or an increase in diameter of an existing lesion by greater than or equal to 2mm). DIVISION OF RADIOLOGY Provider, [facility] - 06/25/2024 * * *Final Report* * * DATE OF EXAM: Jun 25 2024 3:00PM [facility] 0295 - MRI BRAIN WO/W IVCON / PROCEDURE REASON: Multiple sclerosis (HCC) * * * * Physician Interpretation * * * * EXAMINATION: MRI BRAIN WO/W IVCON HISTORY: Multiple sclerosis. Routine follow-up TECHNIQUE: Brain MRI with demyelinating disease protocol with and without IV gadolinium. MQ: MRBMSWOW_2 Contrast: 11 mL Dotarem IV COMPARISON: MR brain 06/20/2023 RESULT: MR BRAIN: Parenchymal Findings: There are multiple foci of hyperintensity on FLAIR and T2 within the white matter, compatible with the clinical diagnosis of multiple sclerosis. New T2 Lesions: None Site(s) of New/Larger T2 Lesion(s): Not applicable Interval Improvement: None. New Enhancing Lesions: None T2 Sheldon of Disease: Moderate. Parenchymal Volume Loss: Mild. Other Significant Findings: None. Minimal mucosal thickening in the right maxillary sinus inferiorly. *Note: The definition of new T2 Lesions includes both new and enlarging plaques on T2-weighted FLAIR images (new lesions greater than or equal to 5mm3 or an increase in diameter of an existing lesion by greater than or equal to 2mm). IMPRESSION IMPRESSION: Multiple intracranial white matter lesions compatible with multiple sclerosis. No new T2 lesions and no new enhancing lesions. Mild parenchymal volume loss. Other Significant Intracranial Findings: None Film Process Operator: LACEY Transcribe Date/Time: Jun 25 2024 3:34P Dictated by : ROGE TOBIAS MD This examination was interpreted and the report reviewed and electronically signed by: ROGE TOBIAS MD on Jun 25 2024 3:39PM EST [facility] MR Brain WO and W contrast I VOrdered By: [facility] Provider on 06-25-2024 [facility] MRI BRAIN WO/W IVCONon 06-25 MRI BRAIN WO/W IVCON * * *Final Report* * * DATE OF EXAM: Jun 25 2024 3:00PM [facility] 0295 - MRI BRAIN WO/W IVCON / PROCEDURE REASON: Multiple sclerosis (HCC) * * * * Physician Interpretation * * * * EXAMINATION: MRI BRAIN WO/W IVCON HISTORY: Multiple sclerosis. Routine follow-up TECHNIQUE: Brain MRI with demyelinating disease protocol with and without IV gadolinium. MQ: MRBMSWOW_2 Contrast: 11 mL Dotarem IV COMPARISON: MR brain 06/20/2023 RESULT: MR BRAIN: Parenchymal Findings: There are multiple foci of hyperintensity on FLAIR and T2 within the white matter, compatible with the clinical diagnosis of multiple sclerosis. New T2 Lesions: None Site(s) of New/Larger T2 Lesion(s): Not applicable Interval Improvement: None. New Enhancing Lesions: None T2 Sheldon of Disease: Moderate. Parenchymal Volume Loss: Mild. Other Significant Findings: None. Minimal mucosal thickening in the right maxillary sinus inferiorly. *Note: The definition of new T2 Lesions includes both new and enlarging plaques on T2-weighted FLAIR images (new lesions greater than or equal to 5mm3 or an increase in diameter of an existing lesion by greater than or equal to 2mm). IMPRESSION: Multiple intracranial white matter lesions compatible with multiple sclerosis. No new T2 lesions and no new enhancing lesions. Mild parenchymal volume loss. Other Significant Intracranial Findings: None Film Process Operator: LACEY Transcribe Date/Time: Jun 25 2024 3:34P Dictated by : ROGE TOBIAS MD This examination was interpreted and the report reviewed and electronically signed by: ROGE TOBIAS MD on Jun 25 2024 3:39PM EST [id number] CN Normal [facility] No Panel Informationon 06-25 Radiology Study observation (narrative) [facility] No Panel Informationon 06-20 Brain Enhancing Lesions None C [facility] Brain Interval Improvement None [facility] Brain New T2 Lesions None Site [facility] Brain Other Significant MRI Findings None. [facility] Brain Parenchymal Volume Loss None [facility] Brain T2 Sheldon of Disease Mild to moderate [facility] Cervical spine enhancing lesions None [facility] Cervical Spine New T2 Lesions Not Applicable [facility] Cervical Spine T2 Sheldon of Disease Mild (multiple plaques - dominant at C2 and T4-5) [facility] Cervical or vagninal specime n microscopic examination by cytology stain (reported asOrdered By: Lluvia Hernandes on 12-21-2022 Cytology report Cyto stain Doc (Cvx/Vag) Comment . [facility] Comment on above: The Pap smear is a s creening test designed to aid in thedetection of premalignant and malignant conditions of theuterine cervix. It is not a diagnostic procedure andshould not be used as the sole means of detecting cervicalcancer. Both false-positive and false-negative reports dooccur. Detection in cervical specim en of any of human papilloma virus (HPV) 16, 18, 31, 33,Ordered By: Lluvia Hernandes on 12-21-2022 HPV 16+18+31+33+35+39+45+51+ 52+56+58+59+66+68 DNA Probe+sig amp Ql (Cvx) Negative Negative [facility] Comment on above: This nucleic acid am plification test detects fourteen high-risk HPV types (16,18,31,33,35,39,45,51,52,56,58,59,66,68)without differentiation.Performed at: - [address] [id number] Director: Cindy Parry MD, Phone: [phone] at: =[facility] [id number] Director: Cindy Parry MD, Phone: [phone] Laboratory - CytologyOrdered By: Lluvia Hernandes on 12-21-2022 Furnace Reliner Cyto stain Nom (Cvx/Vag) [ID] Comment . [facility] Comment on above: Sophia Sanchez Cytotec hnologist (ASCP) Laboratory - Miscellaneous t estsOrdered By: Lluvia Hernandes on 12-21-2022 Service comment (Unsp spec) [Interp] Comment . [facility] Comment on above: This liquid based Th inPrep(R) pap test was screened withthe use of an image guided system. Service comment (Unsp spec) [Interp] . . [facility] No Panel InformationOrdered By: Lluvia Hernandes on 12-21-2022 Pap Smear QC Review Comment . [facility] Comment on above: Jazlyn Diaz, Cytot echnologist (ASC) Pathology report final diagnosis Narrative Comment . [facility] Comment on above: NEGATIVE FOR INTRAEP ITHELIAL LESION OR MALIGNANCY.THIS SPECIMEN WAS RESCREENED PART OF OUR FILM LIBRARY CLERK PROGRAM. Cervical or vagninal specime n microscopic examination by cytology stain (reported ason 11-24-2021 Cytology report Cyto stain Doc (Cvx/Vag) Comment [facility] Work Phone: Comment on above: The Pap smear is a s creening test designed to aid in thedetection of premalignant and malignant conditions of theuterine cervix. It is not a diagnostic procedure andshould not be used as the sole means of detecting cervicalcancer. Both false-positive and false-negative reports dooccur. Detection in cervical specim en of any of human papilloma virus (HPV) 16, 18, 31, 33,on 11-24-2021 HPV 16+18+31+33+35+39+45+51+ 52+56+58+59+66+68 DNA Probe+sig amp Ql (Cvx) Negative Negative [facility] Work Phone: Comment on above: This nucleic acid am plification test detects fourteen high-risk HPV types (16,18,31,33,35,39,45,51,52,56,58,59,66,68)without differentiation.Performed at: [address] [id number] Director: Cindy Parry MD, Phone: [phone] at: =[address] [id number] Director: Cindy Parry MD, Phone: [phone] Laboratory - Cytologyon 10-31 Furnace Reliner Cyto stain Nom (Cvx/Vag) [ID] Comment [facility] Work Phone: Comment on above: Kenyetta Tripathi Cyto technologist (ASCP) Laboratory - Miscellaneous t estson 11-24-2021 Service comment (Unsp spec) [Interp] Comment [facility] Work Phone: Comment on above: This liquid based Th inPrep(R) pap test was screened withthe use of an image guided system. Service comment (Unsp spec) [Interp] . [facility] Work Phone: No Panel Informationon 11-24 Pathology report final diagnosis Narrative Comment [facility] Work Phone: Comment on above: NEGATIVE FOR INTRAEP ITHELIAL LESION OR MALIGNANCY. BRAIN & CERVICAL SPINE [facility] Brain Enhancing Lesions None C [facility] Brain Interval Improvement None [facility] Brain New T2 Lesions None [facility] Brain Other Significant MRI Findings None. [facility] Brain Parenchymal Volume Loss None [facility] Brain T2 Sheldon of Disease Mild to moderate [facility] MRI BRAIN WO/W IVCONon 11-02 [facility] MRI BRAIN WO/W IVCONon 05-21 MRI BRAIN WO/W IVCON * * *Final Report* * * DATE OF EXAM: May 21 2020 11:55AM [facility] 0295 - MRI BRAIN WO/W IVCON / PROCEDURE REASON: Multiple sclerosis, relapsing-remitting (HCC) * * * * Physician Interpretation * * * * RESULT: EXAMINATION: MRI BRAIN WO/W IVCON HISTORY: Multiple sclerosis. Routine follow-up TECHNIQUE: Brain MRI with demyelinating disease protocol with and without IV gadolinium. MQ: MRBMSWOW_2 Contrast: 20 mL Dotarem IV COMPARISON: Brain MRI 03/27/2019. RESULT: MR BRAIN: Parenchymal Findings: There are multiple foci of hyperintensity on FLAIR and T2 within the white matter, compatible with the clinical diagnosis of multiple sclerosis. New T2 Lesions: None Interval Improvement: None. New Enhancing Lesions: None T2 Sheldon of Disease: Mild. Parenchymal Volume Loss: None. Other Significant Findings/Site(s) of New T2 Lesion(s): There is a small retention cyst in the right maxillary sinus.. IMPRESSION: Multiple intracranial white matter lesions compatible with multiple sclerosis. No new T2 lesions and no new enhancing lesions. No significant parenchymal volume loss. Other Significant Intracranial Findings: None *Note: New T2 Lesions includes both new and enlarging plaques on T2-weighted FLAIR images (new lesions greater than or equal to 5mm3 or an increase in diameter of an existing lesion by greater than or equal to 2mm). Transcribed Using Voice Recognition Transcribe Date/Time: May 21 2020 11:54A Dictated by: SEPIDEH PELLETIER MD This examination was interpreted and the report reviewed and electronically signed by: SEPIDEH PELLETIER MD on May 21 2020 12:06PM EST [id number] CN [facility] NURSING PROGon 05-21-2020 NURSING PROG HNO ID: [id number] Author: Lorena Castro RN Service: ? Author Type: Registered Nurse Type: Nursing Progress Note Filed: 05/21/2020 11:03 AM Note Text: Radiology Service Progress Note DATE OF SERVICE: May 21, 2020 TIME: 10:55 AM PATIENT WEIGHT: 130 LBS PATIENT IDENTITY VERIFICATION COMPLETED USING TWO (2) STANDARD IDENTIFIERS: Name and Date of confirmed by patient verbally and Name and Date of confirmed by identification band. FALL SCREENING: Has the patient had 2 falls in the last year or 1 fall with injury or currently using an Ambulatory Assistive Device (Walker, Cane, Wheelchair, Crutches, etc.)? No PATIENT GENDER DATA: Female. status: : No status: NO. ALLERGIES: Reviewed and unchanged CONTRAST ALLERGY: No EXAM: MRI - CONTRAST TYPE: GROUP II IV SITE: Ambulatory: A peripheral IV was started in the Left antecubital site with a Angio cath: 22 gauge. and A Saline lock was inserted per protocol IV SITE APPEARANCE: Clean,Dry and Intact SIGNATURE: Lorena Castro RN PATIENT NAME: Diane Tee DATE: May 21, 2020 TIME: 10:55 AM [facility] PROGRESSon 05-21-2020 PROGRESS HNO ID: [id number] Author: Ramona Sanchez (Tech) Service: Radiology Author Type: District Branch Manager Type: Progress Notes Filed: 05/21/2020 11:34 AM Note Text: Radiology Service Progress Note PATIENT NAME: Diane Tee DATE OF SERVICE: May 21, 2020 TIME: 11:33 AM PATIENT IDENTITY VERIFICATION COMPLETED USING TWO (2) IDENTIFIERS: Name and Date of confirmed by patient verbally. FALL SCREENING: Has the patient had 2 falls in the last year or 1 fall with injury or currently using an Ambulatory Assistive Device (Walker, Cane, Wheelchair, Crutches, etc.)? No PATIENT GENDER DATA: Female. status: : No status: NO. PATIENT RELEVANT IMPLANT DATA REVIEWED: Yes RADIOLOGY DEPARTMENT: MR; Exam(s) Completed: Head: Multiple Sclerosis PERIPHERAL IV DATA: Site assessment: Clean,Dry and Intact, Site disposition Discontinued SIGNED BY: Ramona Sanchez May 21, 2020 11:33 AM [facility] Vital Signs Date Time Vital Sign Value Performing Clinician Faci lity 04-24-2025 09:12-0400 Body height 157.[address] Pedro Delarosa MD Work Phone: [facility] 04-24-2025 09:12-0400 Body mass index (BMI) [Ratio] 24.8 kg/m2 Dr. Pedro Delarosa MD Work Phone: [facility] 04-24-2025 09:12-0400 Body weight 61.[address] Pedro Delarosa MD Work Phone: [facility] 04-24-2025 09:12-0400 Diastolic blood pressure 89 mm[Hg] Dr. Pedro Delarosa MD Work Phone: [facility] 04-24-2025 09:12-0400 Heart rate 85 /min Dr. Pedro Delarosa MD Work Phone: [facility] 04-24-2025 09:12-0400 Systolic blood pressure 127 mm[Hg] Dr. Pedro Delarosa MD Work Phone: [facility] 11-02-2021 14:12-0400 Body height 157.5 cm Estella Denson APRN.CNP Work Phone: [facility] 11-02-2021 14:12-0400 Body weight 54.88 kg Estella Denson ANESTHESIOLOGY FELLOW.MEDART OPERATOR Work Phone: [facility] 11-02-2021 14:12-0400 Diastolic blood pressure 81 mm[Hg] Estella Denson ANESTHESIOLOGY FELLOW.MEDART OPERATOR Work Phone: [facility] 11-02-2021 14:12-0400 Heart rate 75 /min Estella Dawkinsherminia ANESTHESIOLOGY FELLOW.MEDART OPERATOR Work Phone: [facility] 11-02-2021 14:12-0400 Systolic blood pressure 137 mm[Hg] Estella Denson ANESTHESIOLOGY FELLOW.MEDART OPERATOR Work Phone: [facility] Encounters Encounter Date Encounter Type Care Provider Facility Start: 05-17-2025 End: 05-17-2025 ambulatory Pedro Delarosa Facility:[facility] Start: 05-14-2025 End: 05-14-2025 ambulatory LLUVIA HERNANDES Facility:[facility] Start: 04-26-2025 Encounter for gyneco logical examination (general) (routine) with abnormal findings Valery Mejia NP [facility] Start: 04-24-2025 End: 04-24-2025 Patient encounter procedure Valery Mejia NP-C -[facility] Work Phone: Start: 04-24-2025 End: 04-24-2025 Patient encounter status Valery Mejia BABY FORMULA WORKER-C [facility] Start: 04-24-2025 End: 04-24-[address] Pedro Delarosa MD Work Phone: -[facility] Start: 02-13-2025 End: 02-13-[address] Pedro Delarosa MD Work Phone: -[facility] Start: 02-13-2025 End: 02-13-[address] Pedro Delarosa MD -[facility] Start: 02-13-2025 End: 02-13-2025 ambulatory Pedro Delarosa Facility:[facility] Start: 01-29-2025 End: 01-29-2025 Refill Gonzalo Minor PA-C Work Phone: [facility] Comment on above: Refill Request Start: 11-08-2024 End: 11-08-2024 Refill Gonzalo PANIAGUA-C Work Phone: [facility] Comment on above: Refill Request Start: 10-29-2024 End: 11-01-2024 Telephone encounter Gonzalo Minor PA-C Work Phone: [facility] Comment on above: Medication Problem ( Tecfidera) Start: 10-19-2024 End: 10-30-2024 Chart abstracting Gonzalo PANIAGUA-Ruddy Work Phone: [facility] Comment on above: Medication Preauthor ization (Tecfidera 240 mg. (MARKELL)) Start: 10-02-2024 End: 10-03-2024 Refill Po Chinchilla MD Work Phone: [facility] Comment on above: Refill Request Start: 07-19-2024 End: 07-19-2024 Chart abstracting Gonzalo Minor PA-C Work Phone: [facility] Comment on above: Medication Preauthor ization (Dimethyl Fumarate 240 mg.) Start: 07-13-2024 End: 07-13-2024 Telephone encounter Gonzalo Minor PA-C Work Phone: [facility] Start: 07-06-2024 End: 07-06-2024 ambulatory GONZALO MINOR Facility:[facility] Start: 07-04-2024 End: 07-04-2024 ambulatory Gonzalo MERCHANTC Work Phone: Neurology Comment on above: Multiple sclerosis ( HCC) (Primary Dx); Vitamin D deficiency; Malaise and fatigue Start: 07-04-2024 End: 07-04-2024 Telemedicine consultation with patient Gonzalo Minor PA-C Work Phone: Neurology Start: 06-25-2024 End: 06-25-2024 ambulatory LLUVIA HERNANDES Facility:[facility] Start: 06-25-2024 End: 06-25-2024 Subsequent hospital visit by physician Jason Radio [facility] (I-Stat/1.5t) Work Phone: Radiology Comment on above: Multiple sclerosis ( HCC) [G35] Start: 04-17-2024 End: 04-17-2024 Telephone encounter Gonzalo Nabil K[place] Work Phone: [facility] Comment on above: Appointment ([facility] for patient to call so we can get her scheduled for her mris and follow up) Start: 03-12-2024 Refill Po Mcdaniel Work Phone: [facility] Comment on above: Refill Request Start: 01-09-2024 Refill Po Mcdaniel Work Phone: [facility] Comment on above: Refill Request Start: 06-21-2023 End: 06-21-2023 ambulatory Gonzalo Minor PA-C Work Phone: [facility] Comment on above: Multiple sclerosis ( HCC) (Primary Dx) Start: 06-21-2023 End: 06-21-2023 Telemedicine consultation with patient Gonzalo Minor PA-C Work Phone: [facility] Start: 06-20-2023 End: 06-20-2023 Subsequent hospital visit by physician Jason Miller (I-Stat/3t) Work Phone: Radiology Comment on above: Multiple sclerosis, relapsing-remitting (HCC) [G35] Start: 06-13-2023 Refill Po Mcdaniel Work Phone: [facility] Comment on above: Refill Request Start: 04-15-2023 End: 04-15-2023 ambulatory [facility] Work Phone: Start: 04-15-2023 End: 04-15-2023 Patient encounter procedure [facility] [place] Work Phone: Start: 03-30-2023 Refill Gonzalo Mace Work Phone: [facility] Comment on above: Refill Request Start: 03-16-2023 Refill Po Mcadniel Work Phone: [facility] Comment on above: Refill Request Start: 12-24-2022 End: 12-24-2022 ambulatory [facility] Work Phone: Start: 12-24-2022 End: 12-24-2022 Patient encounter procedure [facility] Work Phone: Start: 12-21-2022 End: 12-21-2022 [facility] Start: 11-30-2022 Refill Po Mcdaniel Work Phone: [facility] Comment on above: Refill Request Start: 06-08-2022 Telephone encounter Gonzalo Milton diaz PA-C Work Phone: [facility] Comment on above: Appointment (m for patient to call so we can get her scheduled for a follow up and her labs) Start: 11-27-2021 End: 11-27-2021 Patient encounter procedure [facility] Start: 11-24-2021 End: 11-24-2021 [facility] Start: 11-11-2021 Refill Po Mcdaniel Work Phone: [facility] Comment on above: Refill Request Start: 11-02-2021 End: 11-02-2021 Patient encounter procedure Estella Denson APRN.MEDART OPERATOR Work Phone: [facility] Comment on above: Medication monitorin g encounter (Primary Dx); Vitamin D deficiency; Demyelinating disease of central nervous system (HCC) Start: 11-02-2021 End: 11-02-2021 Subsequent hospital visit by physician Jason Miller (I-Stat/3t) Work Phone: Radiology Comment on above: Multiple sclerosis, relapsing-remitting (HCC) [G35] Procedures Date Procedure Procedure Detail Performing Clinician Start: 02-13-[address] Pedro Delarosa MD Work Phone: Comment on above: Deficiency: <3.4 Mar ginal: 3.4 - 5.1 Adequate: >5.1 Start: 02-13-2025 Vitamin D, 25-hydrox y measurement Dr. Pedro Delarosa MD Work Phone: Comment on above: Vitamin D StatusDefi ciency: <20 ng/mL (50nmol/L)Insufficiency: 20-30 ng/mL (50-75 nmol/L)Sufficiency: 30-100 ng/mL (75-250 nmol/L)Toxicity: >100 ng/mL (>250 nmol/L) Start: 06-25-2024 Mri brain brain stem w/o w/contrast material Gonzalo Minor PA-C Work Phone: Start: 06-25-2024 BRAIN & CERVICAL SPI NE MRI DISCRETE DATA [facility] Provider Start: 06-20-2023 BRAIN & CERVICAL SPI NE MRI DISCRETE DATA [facility] Provider Start: 06-20-2023 Mri brain brain stem w/o w/contrast material Gonzalo Minor PA-C Work Phone: Start: 04-15-2023 Radiologic examinati on of knee Start: 12-24-2022 Screening mammography Start: 11-27-2021 Screening mammography Start: 11-02-2021 BRAIN & CERVICAL SPI NE MRI DISCRETE DATA [facility] Provider Start: 11-02-2021 Mri brain brain stem w/o w/contrast material Gonzalo Minor PA-C Work Phone: Start: 11-01-2021 Adult depression scr eening assessment Estella Denson APRN.MEDART OPERATOR Work Phone: Plan of Treatment Date Care Activity Detail Author Start: 05-28-2025 ambulatory Ambulatory Facility:W [facility] Start: 04-24-2025 Follicle stimulating hormone measurement [facility] Start: 04-24-2025 [facility] Start: 04-01-2025 Influenza vaccination Influenza Vacc ine (#1) [facility] Start: 02-13-2025 Thiamine measurement [facility] Start: 02-13-2025 Vitamin B6 measurement [facility] Start: 2024 Pneumococcal Vaccine : 50+ (1 of 1 - PCV) Pneumococcal Vaccine: 50+ (1 of 1 - PCV) [facility] Start: 2024 Shingrix Vaccine (1 of 2) Shingrix Vaccine (1 of 2) [facility] Start: 07-04-2024 End: 07-04-2024 ambulatory 07/04/2024 3:15 PM [facility] [address] [place] [address] Gonzalo Minor PA-C [address] [place] [address] virtual f/u Neurology Comment on above: virtual f/u Start: 07-04-2024 End: 10-03-2024 25-hydroxyvitamin D3 [Mass/volume] in Serum or Plasma VITAMIN D 25 HYDROXY Lab Routine Vitamin D deficiency Expected: 07/04/2024, Expires: 10/03/2024 [facility] Comment on above: Expected: 07/04/2024 , Expires: 10/03/2024 Start: 07-04-2024 End: 10-03-2024 CBC W Auto Differential panel - Blood COMPLETE BLOOD COUNT AND DIFFERENTIAL Lab Routine Multiple sclerosis (HCC) Expected: 07/04/2024, Expires: 10/03/2024 [facility] Work Phone: Comment on above: Expected: 07/04/2024 , Expires: 10/03/2024 Start: 07-04-2024 End: 10-03-2024 Cobalamin (Vitamin B12) [Mass/volume] in Serum or Plasma VITAMIN B12 Lab Routine Malaise and fatigue Expected: 07/04/2024, Expires: 10/03/2024 [facility] Comment on above: Expected: 07/04/2024 , Expires: 10/03/2024 Start: 07-04-2024 End: 10-03-2024 Hepatic function 2000 panel - Serum or Plasma HEPATIC FUNCTION PNL Lab Routine Multiple sclerosis (HCC) Expected: 07/04/2024, Expires: 10/03/2024 [facility] Comment on above: Expected: 07/04/2024 , Expires: 10/03/2024 Start: 04-01-2024 Covid-19 Vaccine () Covid-19 Vaccine ( season) [facility] Start: 04-01-2024 Covid-19 Vaccine ( season) Covid-19 Vaccine () [facility] Start: 04-01-2024 Influenza vaccination C [facility] Start: 08-01-2023 Behavioral Health Screening Behavioral Health Screening [facility] Start: 04-01-2023 Covid-19 Vaccine ( season) Covid-19 Vaccine () [facility] Start: 04-01-2023 Influenza vaccination C [facility] Start: 03-30-2023 End: 05-30-2023 CBC W Auto Differential panel - Blood CBC + DIFF Lab Routine Multiple sclerosis, relapsing-remitting (HCC) Expected: 03/30/2023, Expires: 05/30/2023 [facility] Work Phone: Comment on above: Expected: 03/30/2023 , Expires: 05/30/2023 Start: 03-30-2023 End: 05-30-2023 Hepatic function 2000 panel - Serum or Plasma HEPATIC FUNCTION PNL Lab Routine Multiple sclerosis, relapsing-remitting (HCC) Expected: 03/30/2023, Expires: 05/30/2023 [facility] Work Phone: Comment on above: Expected: 03/30/2023 , Expires: 05/30/2023 Start: 11-01-2022 Adult depression screening assessment DEPRESSION SCREENING [facility] Start: 08-01-2022 DEPRESSION ASSESSMENT DEPRESSION ASS ESSMENT [facility] Start: 04-01-2022 Influenza vaccination INFLUENZA (#1) [facility] Start: 02-01-2022 End: 04-03-2022 CBC W Auto Differential panel - Blood CBC + DIFF Lab Routine Medication monitoring encounter Expected: 02/01/2022, Expires: 04/03/2022 [facility] Work Phone: Comment on above: Expected: 02/01/2022 , Expires: 04/03/2022 Start: 11-02-2021 End: 01-02-2022 Comprehensive metabolic 2000 panel - Serum or Plasma COMP METABOLIC PANEL Lab Routine Medication monitoring encounter Expected: 11/02/2021, Expires: 01/02/2022 [facility] Work Phone: Comment on above: Expected: 11/02/2021 , Expires: 01/02/2022 Start: 11-02-2021 End: 01-02-2022 VITAMIN D 25 HYDROXY VITAMIN D 25 HYDROXY Lab Routine Vitamin D deficiency Expected: 11/02/2021, Expires: 01/02/2022 [facility] Work Phone: Comment on above: Expected: 11/02/2021 , Expires: 01/02/2022 Start: 09-29-2021 COVID-19 VACCINE (4 - Booster for Pfizer series) COVID-19 VACCINE (4 - Booster for Pfizer series) [facility] Start: 09-29-2021 COVID-19 VACCINE (4 - Pfizer series) COVID-19 VACCINE (4 - Pfizer series) [facility] Start: 08-01-2021 DEPRESSION ASSESSMENT DEPRESSION ASS ESSMENT [facility] Start: 2019 COLOGUARD (FIT-DNA) COLOGUARD (FIT-D NA) [facility] Start: 2019 Colonoscopy COLONOSCOPY [facility] Start: 2019 COLORECTAL CANCER SCREENING COLORECTAL CANCER SCREENING [facility] Start: [address] COLONOGRAPHY [facility] Start: 2019 DIABETES SCREEN DIABETES SCREEN [facility] Start: 2019 Diabetes Screening Diabetes Screenin g [facility] Start: 2019 FECAL OCCULT BLOOD FECAL OCCULT BLOO D [facility] Start: 2019 Lipid 1996 panel - S dean or Plasma Lipid Screening [facility] Start: 2019 Lipid panel Lipid Screening [facility] Start: 2019 LIPID SCREEN LIPID SCREEN [facility] Start: 2019 Screening for malign ant neoplasm of colon [facility] Start: 2019 [facility] Start: 2014 Mammography [facility] Start: 2014 Screening for malign ant neoplasm of breast Mammogram Screening [facility] Start: 12-21-2010 HPV TESTING HPV TESTING [facility] Start: 12-21-2010 PAP TESTING PAP TESTING [facility] Start: 12-21-2010 Screening for malign ant neoplasm of cervix Cervical Cancer Screening [facility] Start: 1993 Hepatitis B Vaccine (1 of 3 - 19+ 3-dose series) Hepatitis B Vaccine (1 of 3 - 19+ 3-dose series) [facility] Start: 1993 Urine microalbumin profile [facility] Start: 1992 Anxiety Screening Anxiety Screening [facility] Start: 1992 Depression Screening Depression Scre ening [facility] Start: 1992 HEPATITIS C SCREENING HEPATITIS C [facility] Start: 1992 Hepatitis C screening Hepatitis C [facility] Start: 1992 HIV SCREENING HIV SCREENING [facility] Start: 1992 HIV screening HIV Screening [facility] Start: 1974 HEPATITIS B (1 of 3 - 3-dose series) HEPATITIS B (1 of 3 - 3-dose series) [facility] Start: 1974 Hepatitis B Vaccine (1 of 3 - 3-dose series) Hepatitis B Vaccine (1 of 3 - 3-dose series) [facility] Estradiol (E2) [Mass/volume] in Serum or Plasma [facility] End: 12-02-2022 Mri brain brain stem w/o w/contrast material MRI BRAIN WO/W IVCON Radiology Routine Demyelinating disease of central nervous system (HCC) 1 Occurrences starting 11/02/2021 until 12/02/2022 [facility] Work Phone: Comment on above: 1 Occurrences starti ng 11/02/2021 until 12/02/2022 End: 12-02-2022 Mri spinal canal cervical w/o & w/contr matrl MRI CERVICAL SPINE WO/W IVCON Radiology Routine Demyelinating disease of central nervous system (HCC) 1 Occurrences starting 11/02/2021 until 12/02/2022 [facility] Work Phone: Comment on above: 1 Occurrences starti ng 11/02/2021 until 12/02/2022 [facility] Immunizations Immunization Date Immunization Notes Care Provider Fa cilidayron 07-07-2021 influenza virus vacc ine, unspecified formulation Po Chinchilla MD Work Phone: [facility] Payers Date Payer Category Payer Self-pay [id number] 2019 Private Health Insurance [employer] CHOICE POS II [id number] 2019-Present [phone] [address] [place] [address] POS [id number] 2019 Private Health Insurance [id number] 2019 Private Health Insurance [id number] 2017 Unknown [id number] Unknown [id number] 62 Unknown [id number] 62 Unknown [id number] Social History Date Type Detail Facility Start: 11-01-2016 End: 04-24-2025 Tobacco smoking status NHIS Never smoked tobacco [facility] Start: 11-02-2021 Alcohol intake Current non-dr everett of alcohol (finding) [facility] Start: 1975 Sex Assigned At Female C [facility] Start: 10-23-2021 End: 11-02-2021 Exposure to SARS-CoV-2 (event) Not sure [facility] Start: 08-21-2017 Tobacco smoking stat us KYIS Unknown if ever smoked [facility] Start: 11-01-2016 Tobacco use and exposure Smokeless tobacco non-user [facility] Start: 11-02-2021 End: 07-04-2024 History of Social function [facility] Start: 11-02-2021 End: 07-04-2024 Tobacco use panel [facility] Adult Depression Screening Assessment 0 [facility] Functional Status Date Assessment Result Facility 03-03-2015 Are you deaf, or do you have serious difficulty hearing No 03/03/2015 2:48 PM EDT Kimmie Cespedes MA No [facility] 03-03-2015 Are you blind, or do you have serious difficulty seeing, even when wearing glasses No 03/03/2015 2:48 PM EDT Kimmie Cespedes MA No [facility] 03-03-2015 Do you have serious difficulty walking or climbing stairs No 03/03/2015 2:48 PM EDT Kimmie Cespedes MA No [facility] 03-03-2015 Do you have difficul ty dressing or bathing No 03/03/2015 2:48 PM EDT Kimmie Cespedes MA No [facility] 03-03-2015 Because of a physica l, mental, or emotional condition, do you have difficulty doing errands alone such as visiting a physician's office or shopping No 03/03/2015 2:48 PM EDT Kimmie Cespedes MA No [facility] Mental Status Date Assessment Result Facility 03-03-2015 Because of a physica l, mental, or emotional condition, do you have serious difficulty concentrating, remembering, or making decisions No 03/03/2015 2:48 PM EDT Kimmie Cespedes MA No [facility] Clinical Notes 11-02-2021 to 04-24-2025 Telephone Encounter - Gonzalo Minor PA-C - 01/29/2025 10:35 AM EDTTelephone Encounter - Gonzalo Minor PA-C - 01/29/2025 10:35 AM EDTTelephone Encounter - Hillary Mcgowan - 01/29/2025 8:32 AM EDT Note Date & Type Note Facility 04-24-2025 Progress note [facility] 01-29-2025 Telephone encounter Note The following approved medication requests have been transmitted electronically. Requested Prescriptions Signed Prescriptions Disp Refills dimethyl fumarate (TECFIDERA) [address] 180 capsule 0 Sig: Take 1 capsule by mouth two times a day. Authorizing Provider: GONZALO MINOR PA-C [facility] 01-29-2025 Miscellaneous Notes The following approved medication requests have been transmitted electronically. Requested Prescriptions Signed Prescriptions Disp Refills dimethyl fumarate (TECFIDERA) [address] 180 capsule 0 Sig: Take 1 capsule by mouth two times a day. Authorizing Provider: GONZALO MINOR PA-C Source : call from patient requesting refill. Delivery : e-script Requested Prescriptions Pending Prescriptions Disp Refills dimethyl fumarate (TECFIDERA) [address] 180 capsule 0 Sig: Take 1 capsule by mouth two times a day. DX : Patient last seen 07/04/24 Next Appointment : Hillary Mcgowan documented in this encounter [facility] 01-29-2025 Telephone encounter Note Source : call from patient requesting refill. Delivery : e-script Requested Prescriptions Pending Prescriptions Disp Refills dimethyl fumarate (TECFIDERA) [address] 180 capsule 0 Sig: Take 1 capsule by mouth two times a day. DX : Patient last seen 07/04/24 Next Appointment : Hillary Mcgowan [facility] 11-08-2024 Telephone encounter Note The following approved medication requests have been transmitted electronically. Requested Prescriptions Signed Prescriptions Disp Refills dimethyl fumarate (TECFIDERA) [address] 180 capsule 0 Sig: Take 1 capsule by mouth two times a day. Authorizing Provider: GONZALO MINOR PA-C [facility] 11-08-2024 Miscellaneous Notes The following approved medication requests have been transmitted electronically. Requested Prescriptions Signed Prescriptions Disp Refills dimethyl fumarate (TECFIDERA) [address] 180 capsule 0 Sig: Take 1 capsule by mouth two times a day. Authorizing Provider: GONZALO MINOR PA-C Source : call from patient requesting refill. Delivery : e-script Requested Prescriptions Pending Prescriptions Disp Refills dimethyl fumarate (TECFIDERA) [address] 180 capsule 0 Sig: Take 1 capsule by mouth two times a day. DX : Patient last seen 07/04/2024 Next Appointment : none Demi Barker documented in this encounter [facility] 11-08-2024 Telephone encounter Note Source : call from patient requesting refill. Delivery : e-script Requested Prescriptions Pending Prescriptions Disp Refills dimethyl fumarate (TECFIDERA) [address] 180 capsule 0 Sig: Take 1 capsule by mouth two times a day. DX : Patient last seen 07/04/2024 Next Appointment : none Demi Barker [facility] 11-01-2024 Telephone encounter Note RN called patient to discuss pharmacy options, no answer. Left VM to call office back. Will also send MCM. GREGORIO Hills [facility] 11-01-2024 Miscellaneous Notes RN called patient to discuss pharmacy options, no answer. Left VM to call office back. Will also send MCM. Jeana RN Patient has been on DMF since 2022. Unlikely insurance will cover brand Tecfidera since she has been tolerating generic. If cost too much with insurance, can look into alternatives ([employer], [employer]). Please reach out to her with options. Gonzalo Minor PA-C Jeffry Call Name of caller : Diane Tee Relationship to patient: Self Return call phone number : [phone] Reason for call : Medication : Name : Tecfidera 240 mg. MARKELL Questions/concern : Patient calling and still trying to get her above med that is MARKELL. I did a PA but now she was told it was denied and I told patient the questions stated that Dimethyl Fumarate is what they will pay for and she was told she can get name brand with co-pay assistance and pay nothing but I told her that her insurance has to approve this and that [facility] would need to run this under the co-pay and see what happens. She has some left but not sure what to do now. Please call to discuss further and what you think as well. PHARMACY name : [facility] documented in this encounter [facility] 10-30-2024 Telephone encounter Note Patient has been on DMF since 2022. Unlikely insurance will cover brand Tecfidera since she has been tolerating generic. If cost too much with insurance, can look into alternatives ([facility], [employer]). Please reach out to her with options. Gonzalo Minor PA-C [facility] 10-29-2024 Telephone encounter Note Jeffry Call Name of caller : Diane Tee Relationship to patient: Self Return call phone number : [phone] Reason for call : Medication : Name : Tecfidera 240 mg. MARKELL Questions/concern : Patient calling and still trying to get her above med that is MARKELL. I did a PA but now she was told it was denied and I told patient the questions stated that Dimethyl Fumarate is what they will pay for and she was told she can get name brand with co-pay assistance and pay nothing but I told her that her insurance has to approve this and that [facility] would need to run this under the co-pay and see what happens. She has some left but not sure what to do now. Please call to discuss further and what you think as well. PHARMACY name : [facility] Work Phone: 10-19-2024 Note HNO ID: [id number] Author: ?, ?, ? Service: ? Author Type: ? Type: Progress Notes Filed: 10/30/2024 07:15 Note Text: Requested by: Received fax from pharmacy Medication Requested: Tecfidera 240 mg. (MARKELL) Insurance Name: [employer] PA phone #: Patient ID#: Faxed over completed [employer] Form along with last office note to fax #[phone]. DENIED-Coverage is provided for brand if documentation is provided that confirms that patient has tried and cannot continue to use generic dimethyl fumarate due to a formulation difference in the inactive ingredients. This can be APPEALED by: [employer] ATTN: [employer] Dept. VIA FAX: #[phone] ID#: [id number] [facility] 10-19-2024 History of Presen t illness Narrative Requested by: Received fax from pharmacy Medication Requested: Tecfidera 240 mg. (MARKELL) Insurance Name: [employer] Insurance PA phone #: Patient ID#: Faxed over completed [employer] Form along with last office note to fax #[phone]. DENIED-Coverage is provided for brand if documentation is provided that confirms that patient has tried and cannot continue to use generic dimethyl fumarate due to a formulation difference in the inactive ingredients. This can be APPEALED by: [employer] ATTN: [employer] Dept. VIA FAX: #[phone] ID#: [id number] documented in this encounter [facility] 10-03-2024 Telephone encounter Note The following approved medication requests have been transmitted electronically. Requested Prescriptions Signed Prescriptions Disp Refills TECFIDERA [address] 60 capsule 5 Sig: Take 1 capsule by mouth two times a day. Authorizing Provider: GONZALO MINOR PA-C [facility] 10-03-2024 Miscellaneous Notes The following approved medication requests have been transmitted electronically. Requested Prescriptions Signed Prescriptions Disp Refills TECFIDERA [address] 60 capsule 5 Sig: Take 1 capsule by mouth two times a day. Authorizing Provider: GONZALO MINOR PA-C Per patient, her insurance will pay for name brand now but not generic. Source : call from patient requesting refill. Delivery : e-script Requested Prescriptions Pending Prescriptions Disp Refills TECFIDERA [address] 60 capsule 5 Sig: Take 1 capsule by mouth two times a day. DX : Patient last seen: 07/04/2024 Next Appointment : None Jessenia Alves documented in this encounter [facility] 10-02-2024 Telephone encounter Note Per patient, her insurance will pay for name brand now but not generic. Source : call from patient requesting refill. Delivery : e-script Requested Prescriptions Pending Prescriptions Disp Refills TECFIDERA [address] 60 capsule 5 Sig: Take 1 capsule by mouth two times a day. DX : Patient last seen: 07/04/2024 Next Appointment : None Jessenia Alves [facility] Work Phone: 07-19-2024 Note HNO ID: [id number] Author: ?, ?, ? Service: ? Author Type: ? Type: Progress Notes Filed: 07/19/2024 13:30 Note Text: Requested by: Received fax from pharmacy Medication Requested: Dimethyl Fumarate 240 mg. Insurance Name: [employer] Insurance PA phone #: Patient ID#: last 4 digits [id number] Faxed over completed [facility] PA Form along with last office note to fax #[phone]. Received fax back from [employer] that a PA is NOT required. [facility] 07-19-2024 History of Presen t illness Narrative Requested by: Received fax from pharmacy Medication Requested: Dimethyl Fumarate 240 mg. Insurance Name: [employer] Insurance PA phone #: Patient ID#: last 4 digits [id number] Faxed over completed [facility] PA Form along with last office note to fax #[phone]. Received fax back from [employer] that a PA is NOT required. documented in this encounter [facility] 07-13-2024 Telephone encounter Note Called patient, no answer. Left VM to check Mychart message or call office back. MyChart message sent. GREGORIO Hills [facility] 07-13-2024 Miscellaneous Notes Called patient, no answer. Left VM to check Mychart message or call office back. MyChart message sent. GREGORIO Hills documented in this encounter [facility] 07-04-2024 Note HNO ID: [id number] Author: GONZALO MINOR PA-C Service: ? Author Type: Physician Gifted Program Teacher Type: Progress Notes Filed: 07/04/2024 16:03 Note Text: [facility] MULTIPLE SCLEROSIS FOLLOWUP/ESTABLISHED PATIENT VIRTUAL VISIT PRINCIPLE NEUROLOGIC DIAGNOSIS: Definite MS HISTORY OF ILLNESS: Date of onset: 2003 Date of diagnosis: 04/2013 Disease course from Onset: Exacerbating/Remitting Disease course last year: Exacerbating/Remitting Medications for MS Used in the Past: none Current medications used for MS: Tecfidera 06/14/2013 Most recent MRI brain: 06/25/24 (stable) Most recent MRI cervical: 06/20/23 Most recent MRI thoracic: not done CSF:Not Done VEP: Not done EN12/23/2012: normal bilaterally Auditory testing: normal bilaterally CHIEF COMPLAINT: Follow-up on MS disease modifying therapy INTERVAL HISTORY: Usual treating team: Amor/Nabil I have communicated my name and active licensure. The patient's identity and physical location were verified at the time of this visit. Either the patient or their legal key account representative has been informed of the risks and benefits of -- and alternatives to -- treatment through a remote evaluation and consents to proceed with the evaluation remotely. Today's visit is being completed virtually; pt consented. Accompanied by self. Last seen 06/21/23. Currently taking DMF. Denies new MS symptoms - feels forgetful at times Ongoing congestion (more on right side) and feels into her ear - waxes and wanes Denies other new medications or health changes Was taking Xyzal but has stopped Went to [place] in December - november have had COVID after came home REVIEW OF SYSTEMS: Mood: PHQ9 responses reviewed and appear below Bladder:no change - denies UTI Bowel: no change Pain:reviewed on nursing intake documentation Denies falls Vision: wearing cheaters. Has seen eye doctor Neuro-QoL Functions (higher=better functioning) Flowsheet Row Appointment from 07/04/2024 in [facility] from 06/21/[address] [facility] Office Visit from 11/02/[address] [facility] Upper Extremity Domain T Score 47 47 47 Lower Extremity Domain T Score 52 51 56 Cognitive Function Domain T Score 48 43 50 Positive Affect Well Being T Score -- -- -- Ability To Participate In Social Roles T Score 63 63 54 Satisfaction With Social Roles T Score 62 50 50 Neuro-QoL Symptoms (higher=worse symptoms) Flowsheet Row Appointment from 07/04/2024 in [facility] from 06/21/[address] [facility] Office Visit from 11/02/[address] [facility] Sleep Domain T Score 49 43 46 Fatigue Domain T Score 40 40 38 Anxiety Domain T Score 48 47 46 Depression Domain T Score 47 44 44 Stigma Domain T Score 44 44 48 Emotional Behavior Dyscontrol T Score -- -- -- PAST HISTORY was reviewed and updated: PAST MEDICAL HISTORY Diagnosis Date Multiple sclerosis (HCC) PMH - PAST MEDICAL HISTORY OF BENIGN HEART MURMUR PAST SURGICAL HISTORY Procedure Laterality Date DILATION AND CURETTAGE DXAND/THER NONOBSTETRIC 2002 Dilation AND curettage PAST SURGICAL HISTORY OF 1991 KNEE SURGERY PAST SURGICAL HISTORY OF 1995 WISDOM TEETH EXTRACTION MEDICATIONS and ALLERGIES were reviewed and updated. 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 No new T2 lesions and no new enhancing lesions. Mild parenchymal volume loss. Other Significant Intracranial Findings: None ASSESSMENT: Diane Tee is a 48 year old female with multiple sclerosis. Patient is on DMF for DMT. Will obtain labs. Brain MRI reviewed and appears stable. Continue to monitor annually. MRI of the brain and/or spinal cord is being ordered to evaluate for efficacy of multiple sclerosis (MS) disease modifying therapy. Disease activity in MS is often not immediately detectable on history or examination, but is sensitively identified on MRI. If identified, new or active MS lesions on MRI may represent suboptimal response to MS therapy, and would change medical management. Denies new MS symptoms. Discussed ENT or PCP for ongoing nasal congestion if needed. PLAN: 1. Continue DMF 2. Labs 3. Brain MRI in 1 year 4. Consider ENT referral 4. Follow-up in 6-12 months I spent a total of 25 minutes o (more content not included)... [facility] 07-04-2024 History of Presen t illness Narrative Images from the original note were not included. [facility] FOLLOW[facility]/ESTABLISHED PATIENT VIRTUAL VISIT [facility]LE NEUROLOGIC DIAGNOSIS: Definite MS HISTORY OF ILLNESS: Date of onset: 2003 Date of diagnosis: 04/2013 Disease course from Onset: Exacerbating/Remitting Disease course last year: Exacerbating/Remitting Medications for MS Used in the Past: none Current medications used for MS: Tecfidera 06/14/2013 Most recent MRI brain: 06/25/24 (stable) Most recent MRI cervical: 06/20/23 Most recent MRI thoracic: not done CSF:Not Done VEP: Not done EN12/23/2012: normal bilaterally Auditory testing: normal bilaterally CHIEF COMPLAINT: Follow-up on MS disease modifying therapy INTERVAL HISTORY: Usual treating team: Amor/Nabil I have communicated my name and active licensure. The patient's identity and physical location were verified at the time of this visit. Either the patient or their legal key account representative has been informed of the risks and benefits of -- and alternatives to -- treatment through a remote evaluation and consents to proceed with the evaluation remotely. Today's visit is being completed virtually; pt consented. Accompanied by self. Last seen 06/21/23. Currently taking DMF. Denies new MS symptoms - feels forgetful at times Ongoing congestion (more on right side) and feels into her ear - waxes and wanes Denies other new medications or health changes Was taking Xyzal but has stopped Went to [place] in December - november have had COVID after came home REVIEW OF SYSTEMS: Mood: PHQ9 responses reviewed and appear below Bladder:no change - denies UTI Bowel: no change Pain:reviewed on nursing intake documentation Denies falls Vision: wearing cheaters. Has seen eye doctor Neuro-QoL Functions (higher=better functioning) Flowsheet Row Appointment from 07/04/2024 in [facility] from 06/21/[address] [facility] Office Visit from 11/02/[address] [facility] Upper Extremity Domain T Score 47 47 47 Lower Extremity Domain T Score 52 51 56 Cognitive Function Domain T Score 48 43 50 Positive Affect Well Being T Score -- -- -- Ability To Participate In Social Roles T Score 63 63 54 Satisfaction With Social Roles T Score 62 50 50 Neuro-QoL Symptoms (higher=worse symptoms) Flowsheet Row Appointment from 07/04/2024 in [facility] from 06/21/[address] [facility] Office Visit from 11/02/[address] [facility] Sleep Domain T Score 49 43 46 Fatigue Domain T Score 40 40 38 Anxiety Domain T Score 48 47 46 Depression Domain T Score 47 44 44 Stigma Domain T Score 44 44 48 Emotional Behavior Dyscontrol T Score -- -- -- PAST HISTORY was reviewed and updated: PAST MEDICAL HISTORY Diagnosis Date Multiple sclerosis (HCC) PMH - PAST MEDICAL HISTORY OF BENIGN HEART MURMUR PAST SURGICAL HISTORY Procedure Laterality Date DILATION & CURETTAGE DX&/THER NONOBSTETRIC 2002 Dilation & curettage PAST SURGICAL HISTORY OF 1991 KNEE SURGERY PAST SURGICAL HISTORY OF 1995 WISDOM TEETH EXTRACTION MEDICATIONS and ALLERGIES were reviewed and updated. 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 No new T2 lesions and no new enhancing lesions. Mild parenchymal volume loss. Other Significant Intracranial Findings: None ASSESSMENT: Diane Tee is a 48 year old female with multiple sclerosis. Patient is on DMF for DMT. Will obtain labs. Brain MRI reviewed and appears stable. Continue to monitor annually. MRI of the brain and/or spinal cord is being ordered to evaluate for efficacy of multiple sclerosis (MS) disease modifying therapy. Disease activity in MS is often not immediately detectable on history or examination, but is sensitively identified on MRI. If identified, new or active MS lesions on MRI may represent suboptimal response to MS therapy, and would change medical management. Denies new MS symptoms. Discussed ENT or PCP for ongoing nasal congestion if needed. PLAN: 1. Continue DMF 2. Labs 3. Brain MRI in 1 year 4. Consider ENT referral 4. Follow-up in 6-12 months I spent a total of 25 minutes on the date of the service which included preparing to see the patient, [id number] patient care, completing clinical documentation, obtaining and/or reviewing separately obtained history, counseling and educating the patient/family/caregiver, ordering medications, tests, or procedures, and communicating results to the patient/family/caregiver. Gonzalo Minor PA-C documented in this encounter [facility] 06-25-2024 History of Presen t illness Narrative Radiology Service Progress Note DATE OF SERVICE: June 25, 2024 TIME: 2:45 PM PATIENT IDENTITY VERIFICATION COMPLETED USING TWO (2) STANDARD IDENTIFIERS: Name and Date of confirmed by patient verbally. FALL SCREENING: Has the patient had 2 falls in the last year or 1 fall with injury or currently using an Ambulatory Assistive Device (Walker, Cane, Wheelchair, Crutches, etc.)? No PATIENT GENDER DATA: Female. status: : No status: NO. PATIENT RELEVANT IMPLANT DATA REVIEWED: Yes PATIENT PRESENTS WITH AN IMPLANTABLE OR ATTACHED PRESS TENDER: No ALLERGIES: Reviewed and unchanged CONTRAST ALLERGY: NO. EXAM: MRI - CONTRAST TYPE: GROUP II PERIPHERAL IV DATA: Ambulatory: A peripheral IV was started in the Left WRIST with a Angio cath: 24 gauge. RADIOLOGY DEPARTMENT: MR; Exam(s) Completed: Head: Multiple Sclerosis SIGNATURE: RT Sanford(Bib) PATIENT NAME: Diane Tee DATE: June 25, 2024 TIME: 2:45 PM documented in this encounter [facility] 06-25-2024 Note HNO ID: [id number] Author: MARIA ALEJANDRA BARBA RT(R) Service: ? Author Type: Technologist Type: Progress Notes Filed: 06/25/2024 14:46 Note Text: Radiology Service Progress Note DATE OF SERVICE: June 25, 2024 TIME: 2:45 PM PATIENT IDENTITY VERIFICATION COMPLETED USING TWO (2) STANDARD IDENTIFIERS: Name and Date of confirmed by patient verbally. FALL SCREENING: Has the patient had 2 falls in the last year or 1 fall with injury or currently using an Ambulatory Assistive Device (Walker, Cane, Wheelchair, Crutches, etc.)? No PATIENT GENDER DATA: Female. status: : No status: NO. PATIENT RELEVANT IMPLANT DATA REVIEWED: Yes PATIENT PRESENTS WITH AN IMPLANTABLE OR ATTACHED PRESS TENDER: No ALLERGIES: Reviewed and unchanged CONTRAST ALLERGY: NO. EXAM: MRI - CONTRAST TYPE: GROUP II PERIPHERAL IV DATA: Ambulatory: A peripheral IV was started in the Left WRIST with a Angio cath: 24 gauge. RADIOLOGY DEPARTMENT: MR; Exam(s) Completed: Head: Multiple Sclerosis SIGNATURE: Maria Alejandra Barba, RT(R) PATIENT NAME: Diane Tee DATE: June 25, 2024 TIME: 2:45 PM [facility] 04-17-2024 Telephone encounter Note Summary: appointment lvm for patient to call so we can get her scheduled for her mris and follow up [facility] 04-17-2024 Miscellaneous Notes Summary: appointment lvm for patient to call so we can get her scheduled for her mris and follow up documented in this encounter [facility] 03-12-2024 Telephone encounter Note Source : electronic from pharmacy requesting refill. Delivery : e-script Requested Prescriptions Pending Prescriptions Disp Refills dimethyl fumarate (TECFIDERA) [address] [Pharmacy Med Name: DIMETHYL FUMARATE DR 240MG] 60 capsule 5 Sig: take 1 capsule by mouth 2 times a day DX : Patient last seen: 06/21/2023 Next Appointment : None Jessenia Alves [facility] Work Phone: 03-12-2024 Miscellaneous Notes Source : electronic from pharmacy requesting refill. Delivery : e-script Requested Prescriptions Pending Prescriptions Disp Refills dimethyl fumarate (TECFIDERA) [address] [Pharmacy Med Name: DIMETHYL FUMARATE DR 240MG] 60 capsule 5 Sig: take 1 capsule by mouth 2 times a day DX : Patient last seen: 06/21/2023 Next Appointment : None Jessenia Alves documented in this encounter [facility] 01-09-2024 Telephone encounter Note Source : electronic from pharmacy requesting refill. Delivery : e-script Requested Prescriptions Pending Prescriptions Disp Refills dimethyl fumarate (TECFIDERA) [address] [Pharmacy Med Name: DIMETHYL FUMARATE DR 240MG] 60 capsule 5 Sig: take 1 capsule by mouth 2 times a day DX : Patient last seen: 06/21/2023 Next Appointment : None Jessenia Alves [facility] Work Phone: 01-09-2024 Miscellaneous Notes Source : electronic from pharmacy requesting refill. Delivery : e-script Requested Prescriptions Pending Prescriptions Disp Refills dimethyl fumarate (TECFIDERA) [address] [Pharmacy Med Name: DIMETHYL FUMARATE DR 240MG] 60 capsule 5 Sig: take 1 capsule by mouth 2 times a day DX : Patient last seen: 06/21/2023 Next Appointment : None Jessenia Alves documented in this encounter [facility] 06-21-2023 History of Presen t illness Narrative Images from the original note were not included. [facility] FOLLOW[facility]/ESTABLISHED PATIENT VIRTUAL VISIT [facility]LE NEUROLOGIC DIAGNOSIS: Definite MS HISTORY OF ILLNESS: Date of onset: 2003 Date of diagnosis: 04/2013 Disease course from Onset: Exacerbating/Remitting Disease course last year: Exacerbating/Remitting Medications for MS Used in the Past: none Current medications used for MS: Tecfidera 06/14/2013 Most recent MRI brain: 06/20/23 (stable) Most recent MRI cervical: 06/20/23 Most recent MRI thoracic: not done CSF:Not Done VEP: Not done EN12/23/2012: normal bilaterally Auditory testing: normal bilaterally CHIEF COMPLAINT: Follow-up on MS disease modifying therapy INTERVAL HISTORY: Usual treating team: mAor/Nabil I have communicated my name and active licensure. The patient's identity and physical location were verified at the time of this visit. Either the patient or their legal key account representative has been informed of the risks and benefits of -- and alternatives to -- treatment through a remote evaluation and consents to proceed with the evaluation remotely. Today's visit is being completed virtually; pt consented. Accompanied by self. Last seen 11/02/21. Currently taking Tecfidera (generic dimethyl fumarate now) - tolerating okay. wearing cheater glasses more lately Old injury with knee bothersome. Tried meloxicam caused dizziness. Working with ortho locally. 1 fall back in September (tripped on shoes) Denies MS symptoms Denies other health changes - had COVID last March (very mild) REVIEW OF SYSTEMS: Mood: PHQ9 responses reviewed and appear below - stable Bladder: no change Bowel: No change Pain:reviewed on nursing intake documentation - denies Fatigue: no change Sleep: no issues Vision: no change, see HPI Neuro-QoL Functions (higher=better functioning) Flowsheet Row Appointment from 06/21/[address] [facility] Office Visit from 11/02/[address] [facility] Office Visit from 05/21/2020 in Neurology Upper Extremity Domain T Score 47 47 47.21 Lower Extremity Domain T Score 51 56 56.17 Cognitive Function Domain T Score 43 50 50.68 Positive Affect Well Being T Score -- -- -- Ability To Participate In Social Roles T Score 63 54 49.82 Satisfaction With Social Roles T Score 50 50 62.19 Neuro-QoL Symptoms (higher=worse symptoms) Flowsheet Row Appointment from 06/21/[address] [facility] Office Visit from 11/02/[address] [facility] Office Visit from 05/21/2020 in Neurology Sleep Domain T Score 43 46 46.28 Fatigue Domain T Score 40 38 37.83 Anxiety Domain T Score 47 46 44.34 Depression Domain T Score 44 44 33.57 Stigma Domain T Score 44 48 36.56 Emotional Behavior Dyscontrol T Score -- -- -- PAST HISTORY was reviewed and updated: PAST MEDICAL HISTORY Diagnosis Date Multiple sclerosis (HCC) PMH - PAST MEDICAL HISTORY OF BENIGN HEART MURMUR PAST SURGICAL HISTORY Procedure Laterality Date DILATION & CURETTAGE DX&/THER NONOBSTETRIC 2002 Dilation & curettage PAST SURGICAL HISTORY OF 1991 KNEE SURGERY PAST SURGICAL HISTORY OF 1995 WISDOM TEETH EXTRACTION MEDICATIONS and ALLERGIES were reviewed and updated. 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 No comparison for c-spine MRI: IMPRESSION: Multiple intracranial white matter lesions compatible with multiple sclerosis. No new T2 lesions and no new enhancing lesions. No significant parenchymal volume loss. Other Significant Intracranial Findings: None Multiple spinal cord (cervical and thoracic) white matter lesions compatible with mild changes of multiple sclerosis within the spinal cord. No new enhancing intramedullary lesions. Other Significant Cervical Spine Findings: No significant cervical canal or foraminal stenosis. ASSESSMENT: Diane Tee is a 47 year old female with multiple sclerosis. Patient is on dimethyl fumarate for DMT. Reports good tolerance and compliance. Labs reviewed and WNL. Continue to monitor annually. Brain and c-spine MRI reviewed from 06/20/23 and brain MRI appears stable. C-spine MRI shows no active lesions and will serve as new baseline scan (no comparison available). MRI of the brain and/or spinal cord is being ordered to evaluate for efficacy of multiple sclerosis (MS) disease modifying therapy. Disease activity in MS is often not immediately detectable on history or examination, but is sensitively identified on MRI. If identified, new or active MS lesions on MRI may represent suboptimal response to MS therapy, and would change medical management. Denies new MS symptoms. Continuing to work with orthopedics for knee pain. PLAN: 1. Continue dimethyl fumarate 2. Labs in about 1 year 3. Brain MRI in about 1 year 4. Follow-up in about 1 year or sooner if symptoms worsen I spent a total of 20 minutes on the date of the service which included preparing to see the patient, [id number] patient care, completing clinical documentation, obtaining and/or reviewing separately obtained history, counseling and educating the patient/family/caregiver, ordering medications, tests, or procedures, independently interpreting results (not separately reported), and communicating results to the patient/family/caregiver. Gonzalo Minor PA-C documented in this encounter [facility] 06-20-2023 History of Presen t illness Narrative Radiology Service Progress Note DATE OF SERVICE: June 20, 2023 TIME: 11:15 AM PATIENT IDENTITY VERIFICATION COMPLETED USING TWO (2) STANDARD IDENTIFIERS: Name and Date of confirmed by patient verbally. FALL SCREENING: Has the patient had 2 falls in the last year or 1 fall with injury or currently using an Ambulatory Assistive Device (Walker, Cane, Wheelchair, Crutches, etc.)? No PATIENT GENDER DATA: Female. status: : No status: NO. PATIENT RELEVANT IMPLANT DATA REVIEWED: Yes ALLERGIES: Reviewed and unchanged CONTRAST ALLERGY: NO. EXAM: MRI - CONTRAST TYPE: GROUP II PERIPHERAL IV DATA: Ambulatory: A peripheral IV was started in the Left antecubital site with a Butterfly: 23 gauge. RADIOLOGY DEPARTMENT: MR; Exam(s) Completed: Head: Multiple Sclerosis Spine: Cervical spine SIGNATURE: RT Gabe(Bib) PATIENT NAME: Diane Tee DATE: June 20, 2023 TIME: 11:15 AM documented in this encounter [facility] 06-14-2023 Miscellaneous Notes The following approved medication requests have been transmitted electronically. Requested Prescriptions Signed Prescriptions Disp Refills dimethyl fumarate (TECFIDERA) [address] 60 capsule 5 Sig: take 1 capsule by mouth 2 times a day Authorizing Provider: GONZALO MINOR PA-C Source : electronic from pharmacy requesting refill. Delivery : e-script Requested Prescriptions Pending Prescriptions Disp Refills dimethyl fumarate (TECFIDERA) [address] [Pharmacy Med Name: DIMETHYL FUMARATE DR 240MG] 60 capsule 5 Sig: take 1 capsule by mouth 2 times a day DX : Patient last seen: 11/02/2021 Next Appointment : 06/21/2023 Jessenia Alves documented in this encounter [facility] 04-01-2023 Miscellaneous Notes Letter mailed to patient notifying of need to complete medication monitoring lab work. Ricarda Renner RN The following approved medication requests have been transmitted electronically. Requested Prescriptions Signed Prescriptions Disp Refills dimethyl fumarate (TECFIDERA) [address] 60 capsule 2 Sig: Take 1 capsule (240 mg) by mouth twice daily. Authorizing Provider: PO CHINCHILLA Ordering User: GONZALO MINOR PA-C Source : call from patient requesting refill. Delivery : e-script Requested Prescriptions Pending Prescriptions Disp Refills dimethyl fumarate (TECFIDERA) [address] 60 capsule 2 Sig: Take 1 capsule (240 mg) by mouth twice daily. DX : Patient last seen 11/20/21 Next Appointment : DANY Matthew documented in this encounter [facility] 12-21-2022 Note [facility] Pap Smear Specimen Adequacy December 21, 2022 4:15pm Comment . Satisfactory for evaluation. Endocervical and/or squamous metaplasticcells (endocervical component) are present. Comment on above: Satisfactory for haily luation. Endocervical and/or squamous metaplasticcells (endocervical component) are present. 12-21-2022 Note [facility] Pap Smear Specimen Adequacy December 21, 2022 4:15pm Comment . Satisfactory for evaluation. Endocervical and/or squamous metaplasticcells (endocervical component) are present. Comment on above: Satisfactory for haily luation. Endocervical and/or squamous metaplasticcells (endocervical component) are present. 12-01-2022 Miscellaneous Notes Formattin g of this note is different from the original. The following approved medication requests have been transmitted electronically. Requested Prescriptions Signed Prescriptions Disp Refills dimethyl fumarate (TECFIDERA) [address] 60 capsule 2 Sig: TAKE 1 CAPSULE BY MOUTH 2 TIMES A DAY Authorizing Provider: PO CHINCHILLA Ordering User: GONZALO MINOR PA-C Source : electronic from pharmacy requesting refill. Delivery : e-script Requested Prescriptions Pending Prescriptions Disp Refills dimethyl fumarate (TECFIDERA) [address] [Pharmacy Med Name: DIMETHYL FUMARATE DR 240MG] 60 capsule 2 Sig: TAKE 1 CAPSULE BY MOUTH 2 TIMES A DAY DX : Patient last seen: 11/02/2021 Next Appointment : None Jessenia Alves documented in this encounter [facility] 06-08-2022 Miscellaneous Notes Summary: appointment lvm for patient to call so we can get her scheduled for a follow up and her labs documented in this encounter [facility] 11-24-2021 Note [facility] Work Phone: Pap Smear Specimen Adequacy November 24, 2021 2:30pm Comment Satisfactory for evaluation. Endocervical and/or squamous metaplasticcells (endocervical component) are present. Comment on above: Satisfactory for haily luation. Endocervical and/or squamous metaplasticcells (endocervical component) are present. 11-24-2021 Note [facility] Work Phone: Pap Smear Specimen Adequacy November 24, 2021 2:30pm Comment Satisfactory for evaluation. Endocervical and/or squamous metaplasticcells (endocervical component) are present. Comment on above: Satisfactory for haily luation. Endocervical and/or squamous metaplasticcells (endocervical component) are present. 11-11-2021 Miscellaneous Notes The following approved medication requests have been transmitted electronically. Signed Prescriptions Disp Refills dimethyl fumarate (TECFIDERA) [address] 60 capsule 5 Sig: TAKE 1 CAPSULE BY MOUTH 2 TIMES A DAY MARKELL: No Authorizing Provider: PO CHINCHILLA Ordering User: GONZALO MINOR PA-C Source : electronic from pharmacy requesting refill. Delivery : e-script Pending Prescriptions Disp Refills DIMETHYL FUMARATE 240 MG CAPSULE,DELAYED RELEASE 60 capsule 5 Sig: TAKE 1 CAPSULE BY MOUTH 2 TIMES A DAY MARKELL: No DX : Patient last seen: 11/02/2021 Next Appointment : None Jessenia Alves documented in this encounter [facility] 11-02-2021 Instructions Estella Denson APRN.CNP - 11/02/2021 2:54 PM EDT -Continue on Tecfidera -Updated labs: CBCw/diff, CMP, Vitamin D -MRI brain and cervical cord in 1 year -Follow up in 6 months unless sooner if needed -You can call [phone] to make your appointments documented in this encounter [facility] 11-02-2021 History of Presen t illness Narrative Images from the original note were not included. [facility] FOLLOWUP/ESTABLISHED PATIENT VISIT PRINCIPLE NEUROLOGIC DIAGNOSIS: Definite MS HISTORY OF ILLNESS: Date of onset: 2003 Date of diagnosis: 04/2013 Disease course from Onset: Exacerbating/Remitting Disease course last year: Exacerbating/Remitting Medications for MS Used in the Past: none Current medications used for MS: Tecfidera 06/14/2013 Most recent MRI brain: 11/02/2021 (stable) Most recent MRI cervical: not done Most recent MRI thoracic: not done CSF:Not Done VEP: Not done EN12/23/2012: normal bilaterally Auditory testing: normal bilaterally CHIEF COMPLAINT: Follow-up on MS disease modifying therapy INTERVAL HISTORY: Usual treating team: Amor/Nabil The patient is unaccompanied. The patient was last seen 05/21/2020, currently taking Tecfidera. Since the patient's last visit the patient reports overall feeling stable. Issues with current MS therapy: Tolerating medication without side effects. Denies any new or different symptoms since last visit. Spring time feels increasing dizziness. Also experiences seasonal allergies and thinks this is a contributing factor. Vitamin D daily. SUBJECTIVE & REVIEW OF SYSTEMS: Neuro-QoL Functions (higher=better functioning) Appointment from 11/02/[address] [facility] Office Visit from 05/21/2020 in Neurology Office Visit from 03/27/[address] [facility] Upper Extremity Domain T Score 47 47.21 47.9 Lower Extremity Domain T Score 56 56.17 56.64 Cognitive Function Domain T Score 50 50.68 49.89 Positive Affect Well Being T Score 66.7 Ability To Participate In Social Roles T Score 54 49.82 63.77 Satisfaction With Social Roles T Score 50 62.19 62.9 Neuro-QoL Symptoms (higher=worse symptoms) Appointment from 11/02/[address] [facility] Office Visit from 05/21/2020 in Neurology Office Visit from 03/27/[address] [facility] Sleep Domain T Score 46 46.28 45.63 Fatigue Domain T Score 38 37.83 39.47 Anxiety Domain T Score 46 44.34 42.62 Depression Domain T Score 44 33.57 33.15 Stigma Domain T Score 48 36.56 36.04 Emotional Behavior Dyscontrol T Score 41.01 *NeuroQoL is a multi-domain patient-reported quality of life questionnaire. PHQ-9 Appointment from 11/02/[address] [facility] Office Visit from 05/21/2020 in Neurology PHQ-9 Score 1 3 *PHQ-9 is a questionnaire for depressive symptoms, with scores 0-4 indicating none, 5-9 mild, 10-14 moderate, 15-19 moderately severe, and 20-27 severe symptoms. PROMIS-10 Appointment from 11/02/[address] [facility] Office Visit from 05/21/2020 in Neurology Global Physical Health T Score 50.8 50.8 Global Mental Health T Score 50.8 59 0-10 Standard Pain Scale 4 4 *PROMIS-10 is a patient-reported quality of life measure, typically reported as physical and mental domains. Here scores are expressed as percentiles, where the lowest possible score is one, the highest possible score is 99, and 50 is average. Mood: Good/bright Spasticity: None Bladder: Normal Bowel: No change Pain related to today's visit: Normal Fatigue: Mild Sleep: Melatonin at bedtime Memory/Concentration: Normal PAST HISTORY was reviewed and updated: PAST MEDICAL HISTORY Diagnosis Date Multiple sclerosis (HCC) PMH - PAST MEDICAL HISTORY OF BENIGN HEART MURMUR PAST SURGICAL HISTORY Procedure Laterality Date D&C, DIAG AND/OR THERAPEUTIC 2002 Dilation & curettage PAST SURGICAL HISTORY OF 1991 KNEE SURGERY PAST SURGICAL HISTORY OF 1995 WISDOM TEETH EXTRACTION MEDICATIONS and ALLERGIES were reviewed and updated. SOCIAL HISTORY was reviewed and updated: Social History Tobacco Use Smoking status: Never Smoker Smokeless tobacco: Never Used Living situation: Living at home without assistance Employment Status / Disability: Full-time OBJECTIVE: VITALS & WELLNESS: There were no vitals taken for this visit. MSPT Performance Tests 05/21/2020 03/27/2019 Processing Speed Total Number Correct 61 60 Low-contrast letter acuity test-2.5 percent opacity 46 44 Low-contrast letter acuity test-100 percent opacity 59 59 Dominant hand - - MDT Left Hand Time 25.83 19.93 MDT Right Hand Time 21.7 20.16 Walking Speed Test (25 feet) 4.44 3.97 EXAM: General Appearance: well appearing, in no acute distress Mental status evaluation during the interview and examination showed normal level of consciousness, orientation, language, memory, praxis, and higher intellectual function Affect: Normal Visual acuity: OD 20/30 OS 20/30 Correction: Without Extraocular movements: full, without ANURAG Speech: normal Muscle strength (#/5): Right Left Upper Extremity: Deltoids 5 5 Biceps 5 5 Triceps 5 5 Psychology Department Chair 5 5 Dorsal interossei 5 5 Lower extremity: Iliopsoas 5 5 Quadriceps 5 5 Hamstrings 5 5 Tibialis anterior 5 5 Gastrocnemius 5 5 Coordination: Upper extremity dexterity and rapid movements: Normal bilaterally Finger-nose: no dysmetria; coordination intact Heel-vázquez: no dysmetria; coordination intact Standing balance: Normal Standard gait: normal. Assistive device: independent RESULTS: Monitoring labs: No results found for: WBC, HB, HCT, PLT, ABSLYMPH No results found for: VITD25 No results found for: AST, GLUC, BUN, CREAT, NA, K, CHLOR, ALT No results found for: JCVIND, JCVABNo results found for: JCVAB, JCVIND Discrete MRI Results Component Value Date Brain New T2 Lesions None 05/21/2020 Brain Enhancing Lesions None 05/21/2020 ASSESSMENT/PLAN: Diane Tee is a 46 year old female with Multiple Sclerosis. Currently taking Tecfidera with good compliance. Most recent MRI brain is stable showing no new T2 lesions and no enhancing lesions. She denies any new or different symptoms and physical exam remains stable. Will plan for updated medication monitoring labs in near future with updated MRI brain and cervical cord in 1 year. She will continue to supplement with Vitamin D. Encouraged patient to reach out in the setting of new or different symptoms. MRI of the brain and/or spinal cord is being ordered to evaluate for efficacy of multiple sclerosis (MS) disease modifying therapy. Disease activity in MS is often not immediately detectable on history or examination, but is sensitively identified on MRI. If identified, new or active MS lesions on MRI may represent suboptimal response to MS therapy, and would change medical management. Exam is:Stable, continue with current IMDT. The prescribed disease modifying therapy for MS is having the expected benefit in this patient based on imaging and clinical criteria, and will be continued or refilled, with planned follow-up at approximately 6-month intervals to continue to assess response on an ongoing basis. -Continue Tecfidera -Updated labs: CBCw/diff, CMP, Vit D -MRI brain and cervical in 1 year -Continue to supplement with Vitamin D daily -Follow up in 6 months unless sooner if needed Patient Health Education Discussed at Visit: Vitamin D supplementation Follow-up: In 6 months at [facility] I spent a total of 25 minutes on the date of the service which included preparing to see the patient, [id number] patient care, completing clinical documentation, obtaining and/or reviewing separately obtained history, performing a medically appropriate examination, counseling and educating the patient/family/caregiver and ordering medications, tests, or procedures. Estella Denson APRN.SABAS documented in this encounter [facility] 11-02-2021 History of Presen t illness Narrative Radiology Service Progress Note DATE OF SERVICE: November 02, 2021 TIME: 10:42 AM PATIENT IDENTITY VERIFICATION COMPLETED USING TWO (2) STANDARD IDENTIFIERS: Name and Date of confirmed by patient verbally. FALL SCREENING: Has the patient had 2 falls in the last year or 1 fall with injury or currently using an Ambulatory Assistive Device (Walker, Cane, Wheelchair, Crutches, etc.)? No PATIENT GENDER DATA: Female. status: : No status: NO. PATIENT RELEVANT IMPLANT DATA REVIEWED: Yes ALLERGIES: Reviewed and unchanged CONTRAST ALLERGY: NO. EXAM: MRI - CONTRAST TYPE: GROUP II PERIPHERAL IV DATA: Ambulatory: A peripheral IV was started in the Right antecubital site with a Butterfly: 23 gauge. RADIOLOGY DEPARTMENT: MR; Exam(s) Completed: Head: Multiple Sclerosis SIGNATURE: RT Bravo(Bib) PATIENT NAME: Diane Tee DATE: November 02, 2021 TIME: 10:42 AM documented in this encounter [facility] Evaluation note Diagnosis Medication monitoring encounter- Primary Encounter for therapeutic drug monitoring Vitamin D deficiency Unspecified vitamin D deficiency Demyelinating disease of central nervous system (HCC) Demyelinating disease of central nervous system, unspecified documented [facility] Diagnosis Multiple sclerosis, relapsing-remitting (HCC) Multiple sclerosis [facility]No assessment information availableWSelect [facility] Work Phone: Evaluation note* Diagnosis Multiple sclerosis, relapsing-remitting (HCC)- Primary Multiple sclerosis documented [facility] encounter [facility]* Diagnosis Multiple sclerosis, relapsing-remitting (HCC) Multiple sclerosis documented [facility] Diagnosis Multiple sclerosis (HCC)- Primary Multiple sclerosis [facility]* Diagnosis Multiple sclerosis (HCC) Multiple sclerosis documented [facility]* Diagnosis Multiple sclerosis (HCC)- Primary Multiple sclerosis Vitamin D deficiency Unspecified vitamin D deficiency Malaise and fatigue Other malaise and fatigue [facility]* Diagnosis Onset Date Resolution Status Admit Date Oligomenorrhea acute April 24, 2025 8:53am Encounter for routine gynecological examination noneactive Septem 2024 8:53am [facility] Work Phone: Progress note Author Valery Mejia [facility] Note Date/Time April 24, 2025 9:32am [facility] [address] [place] [address], [address] [place] [address] OFFICE VISIT Date of Service: 04/24/25 MR#: [id number] Acct: [id number] Name: DIANE TEE Rep #: [id number] : 1975 Provider: MARISOL Mejia Age/Sex: 49/F Location: [facility] Status: Signed Intake Vital Signs 04/24/25 09:03 04/24/25 09:12 Height 5 ft 2 in 5 ft 2 in Weight: 136 lb BMI 24.8 BP 127/89 H Blood Pressure Location Lt brachial Position Sitting Pulse 85 Pulse Source NIBP 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 Accompanied by: Self Is patient in pain?: No Feel stressed/tense/nervous/anxious/difficulty sleeping: not at all Allergies amoxicillin Allergy (Mild, Verified 04/24/25 09:05) Rash Medications ?Medication ?Instructions ?Recorded ?Confirmed ?Type cholecalciferol (vitamin D3) 50 2,000 unit PO ONCE 04/24/25 History mcg (2,000 unit) capsule dimethyl fumarate 240 mg 240 mg PO BID 04/24/2504/24 History capsule,delayed release fluticasone propionate 50 1 spray intranasal QDAY 04/0204/24/25 History mcg/actuation nasal spray,suspension (Flonase Allergy Relief) lansoprazole 30 mg capsule,delayed 30 mg PO QDAY 04/2404/24/25 History release levocetirizine 5 mg tablet (Xyzal) 5 mg PO QDAY 04/24/25 History melatonin 10 mg tablet 10 mg PO HS PRN 04/24/25 History norethindrone acetate 1 mg-ethinyl 1 tab PO QDAY 04/2404/24/25 History estradiol 20 mcg tablet () Is last menstrual period known: Yes Last Menstrual Period: 04/17/25 Control Method: Jun[facility] Medical History (Updated 04/24/25 @ 09:30 by Valery Mejia 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 current gender identity: female Smoking Status: Never smoker alcohol intake: current alcohol intake frequency: a few times a week details: 1-3 per week substance use type: does not use do you feel safe at home: Yes additional social history: . Rubén. 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 History Past Pregnancies Del. Date Name GA/Weeks Outcome Route Bth Weight [facility]02 28 still 04/09/03 12 spontaneous 04/02/04 Chris live - full term 11/09/05 Carol live - full term HPI Encounter for routine gynecological examination Details: DIANE TEE is a 49 year old who presents for annual exam. Denies concerns. Philomena OCP, no menses typically during placebo week. Last PAP: 2022 History of abnormal PAP: no Last mammogram: 2023 History of abnormal mammogram: no Colon cancer screenin Other preventative health care screenings: Luz Female Reproductive History Last Menstrual Period: 04/17/25 Questions: metrorrhagia: No, sexually active: Yes, dyspareunia: No and PCB: No ROS Const Constitutional: Denies fatigue, weight gain or weight loss Cardio Card: Denies chest pain Resp Resp: Denies cough or dyspnea on exertion GI GI: Denies abdominal pain, bloating, change in stool character, constipation or vomiting : Reports as per HPI; Denies difficulty voiding, pelvic pain, urinary frequency, urinary incontinence,urinary urgency, vaginal discharge or vaginal pruritus Exam Const General: cooperative, healthy appearing, no acute distress and well developed Orientation: alert, oriented to person and oriented to place [facility] Head: normal to inspection Neck Neck: normal visual inspection Thyroid: thyroid normal Lymphatic: no lymphadenopathy noted Chest Breast inspection: normal inspection of the breasts and normal inspection of theaxillae Breast palpation: normal palpation of the breasts, normal palpation of the axillae and no axillary lymphadenopathy Resp Effort & Inspection: normal respiratory effort GI Palpation: soft, no masses and nontender Rectal Exam: deferred External Female Exam: normal external appearance and normal appearance of the urethra Urethra: normal appearance of the urethra and normal palpation Speculum Exam - Vagina: normal appearance of the vagina and normal vaginal discharge Speculum Exam - Cervix: normal appearance of the cervix Bimanual Exam- Vagina & Uterus: normal bimanual exam, uterine size normal, uterine shape normal and non-tender Bimanual Exam- Adnexa, other: normal adnexae, no masses, normal and non-tender Pelvic Support: normal Neuro General: patient alert and patient oriented x3 Psych Affect: normal affect Coding Level of Care Code Off vis,new,prev 40-64yrs Diagnoses Encounter for gynecological examination with abnormal finding Z01.411 Gynecological examination findings: abnormal findings PRESENT Secondary oligomenorrhea N91.4 Oligomenorrhea type: secondary Assessment and Plan Assessment and Plan (1) Encounter for routine gynecological examination: Qualifiers: Gynecological examination findings: abnormal findings PRESENT QualifiedCode(s): Z01.411 - Encounter for gynecological examination (general) (routine) with abnormal findings (2) Oligomenorrhea: Status: Acute Qualifiers: Oligomenorrhea type: secondary Qualified Code(s): N91.4 - Secondary oligomenorrhea Orders: Orders Follicle Stimulating Hormone Today N91.5 - Oligomenorrhea, unspecified Estradiol Today N91.5 - Oligomenorrhea, unspecified Antimullerian Hormone, Serum Today N91.4 - Secondary oligomenorrhea Plan Completed breast and pelvic exam Reviewed diet and exercise Pap 2022 Mammogram ordered breast self exam encouraged monthly Contraception will check FSH, estradiol and AMH after 7 days hormone free Colonoscopy 2022 RTO 1 year, prn with problems Valery Mejia MEDART OPERATOR 04/24/25 0936 <Electronically signed by Valery caba BABY FORMULA WORKER BABY FORMULA WORKER-C> Date _ Valery Mejia BABY FORMULA WORKER BABY FORMULA WORKER-C Cosigner Signature: Date (if applicable) CC: ~ [facility] Work Phone: Reason for referral (narrative)* Diagnostic Procedure Only (Routine) - Closed Specialty Diagnoses / Procedures Referred By Contac kathleen Referred To Contact MR IMAGING Diagnoses Multiple sclerosis, relapsing-remitting (HCC) Procedures MRI BRAIN WO/W IVCON MRI BRAIN BRAIN STEM W/O W/CONTRAST MATERIAL Gonzalo Minor PA-C [id number] [place] [address] [facility] [place] [address] Referral ID Status Reason Start Date Expiration Date V isits Requested Visits Authorized [id number] Closed Auto-Generate d Referral 06/20/2023 07/31/2023 1 1 * Diagnostic Procedure Only (Routine) - Closed Specialty Diagnoses / Procedures Referred By James wang Referred To Contact MR IMAGING Diagnoses Multiple sclerosis, relapsing-remitting (HCC) Procedures MRI CERVICAL SPINE WO/W IVCON MRI SPINAL CANAL CERVICAL W/O & W/CONTR MATRL Gonzalo Minor PA-C [address] [place] [address] [facility] [place] [address] Referral ID Status Reason Start Date Expiration Date V isits Requested Visits Authorized [id number] Closed Auto-Generate d Referral 06/20/2023 07/31/2023 1 1 [facility] (narrative)No reason for referral information availableWSelect Medical [facility] Work Phone: Reason for visit Narrative* Diagnostic Procedure Only (Routine) - Closed Specialty Diagnoses / Procedures Referred By Contac t Referred To Contact MR IMAGING Diagnoses Multiple sclerosis, relapsing-remitting (HCC) Procedures MRI CERVICAL SPINE WO/W IVCON MRI SPINAL CANAL CERVICAL W/O & W/CONTR MATRL Gonzalo Minor PA-C [address] [place] [address] [facility] [place] [address] Referral ID Status Reason Start Date Expiration Date V isits Requested Visits Authorized [id number] Closed Auto-Generate d Referral 06/20/2023 07/31/2023 1 1 [facility] Summary Purpose Family History No Family History Records Found Relationship Condition Age at Onset Recorded Date/T tessy father Hypertension Unknown brother Hypertension Unknown Advance Directives No Advanced Directives Records FoundNo Advanced Directives Records FoundNo Advanced Directives Records Found Reason for Referral Specialty Diagnoses / Procedures Referred By Contac t Referred To Contact MR IMAGING Diagnoses Demyelinating disease of central nervous system (HCC) Procedures MRI CERVICAL SPINE WO/W IVCON MRI SPINAL CANAL CERVICAL W/O & W/CONTR MATRL Estella Denson, ANESTHESIOLOGY FELLOW.MEDART OPERATOR [address] [place] [address] Mr Imaging Referral ID Status Reason Start Date Expiration Date Visits Requested Visits Authorized [id number] Pending Review Auto-Generat ed Referral 11/02/2021 12/02/2022 1 1 Specialty Diagnoses / Procedures Referred By Contac t Referred To Contact MR IMAGING Diagnoses Demyelinating disease of central nervous system (HCC) Procedures MRI BRAIN WO/W IVCON MRI BRAIN BRAIN STEM W/O W/CONTRAST MATERIAL Estella Denson, ANESTHESIOLOGY FELLOW.MEDART OPERATOR [address] [id number] Mr Imaging Referral ID Status Reason Start Date Expiration Date Visits Requested Visits Authorized [id number] Pending Review Auto-Generat ed Referral 11/02/2021 12/02/2022 1 1 Specialty Diagnoses / Procedures Referred By Contac t Referred To Contact MR IMAGING Diagnoses Multiple sclerosis (HCC) Procedures MRI BRAIN WO/W IVCON MRI BRAIN BRAIN STEM W/O W/CONTRAST MATERIAL Gonzalo Minor PA-C [address] [facility] [place] [address] [place] [address] Referral ID Status Reason Start Date Expiration Date V isits Requested Visits Authorized [id number] Closed Auto-Generate d Referral 04/17/2024 05/17/2025 1 1 Chief Complaint and Reason for Visit Chief Complaint SCREENING Chief Complaint SCREENING RIGHT KNEE PAIN Chief Complaint Admit Date 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) April 24, 2025 8:53am Reason for Visit Admit Date Oligomenorrhea April 24, 2025 8:53am Encounter for routine gynecological exam ination April 24, 2025 8:53am Additional Source Comments INFORMATION SOURCE (unrecogn ized section and content) DATE CREATED AUTHOR 05/21/2020 [facility] DATE CREATED AUTHOR AUTHOR'S ORGANIZ ATION 05/16/2025 [facility] DATE CREATED AUTHOR AUTHOR'S ORGANIZ ATION 05/18/2025 [facility] Source Comments (unrecognize d section and content) In the event this informatio n is protected by the Federal Confidentiality of Alcohol and Drug Abuse Patient Records regulations: The Federal rules restrict any use of the information to criminally investigate or prosecute any alcohol or drug abuse patient.[facility] the event this information is protected by the Federal Confidentiality of Alcohol and Drug Abuse Patient Records regulations: The Federal rules restrict any use of the information to criminally investigate or prosecute any alcohol or drug abuse patient.[facility] NorthIn the event this information is protected by the Federal Confidentiality of Alcohol and Drug Abuse Patient Records regulations: The Federal rules restrict any use of the information to criminally investigate or prosecute any alcohol or drug abuse patient.[facility] North[facility] the event this information is protected by the Federal Confidentiality of Alcohol and Drug Abuse Patient Records regulations: The Federal rules restrict any use of the information to criminally investigate or prosecute any alcohol or drug abuse patient.[facility] NorthIn the event this information is protected by the Federal Confidentiality of Alcohol and Drug Abuse Patient Records regulations: The Federal rules restrict any use of the information to criminally investigate or prosecute any alcohol or drug abuse patient.[facility] NorthIn the event this information is protected by the Federal Confidentiality of Alcohol and Drug Abuse Patient Records regulations: The Federal rules restrict any use of the information to criminally investigate or prosecute any alcohol or drug abuse patient.[facility] NorthIn the event this information is protected by the Federal Confidentiality of Alcohol and Drug Abuse Patient Records regulations: The Federal rules restrict any use of the information to criminally investigate or prosecute any alcohol or drug abuse patient.[facility] NorthIn the event this information is protected by the Federal Confidentiality of Alcohol and Drug Abuse Patient Records regulations: The Federal rules restrict any use of the information to criminally investigate or prosecute any alcohol or drug abuse patient.[facility] NorthIn the event this information is protected by the Federal Confidentiality of Alcohol and Drug Abuse Patient Records regulations: The Federal rules restrict any use of the information to criminally investigate or prosecute any alcohol or drug abuse patient.[facility]In the event this information is protected by the Federal Confidentiality of Alcohol and Drug Abuse Patient Records regulations: The Federal rules restrict any use of the information to criminally investigate or prosecute any alcohol or drug abuse patient.[facility] NorthIn the event this information is protected by the Federal Confidentiality of Alcohol and Drug Abuse Patient Records regulations: The Federal rules restrict any use of the information to criminally investigate or prosecute any alcohol or drug abuse patient.[facility] NorthIn the event this information is protected by the Federal Confidentiality of Alcohol and Drug Abuse Patient Records regulations: The Federal rules restrict any use of the information to criminally investigate or prosecute any alcohol or drug abuse patient.[facility] NorthIn the event this information is protected by the Federal Confidentiality of Alcohol and Drug Abuse Patient Records regulations: The Federal rules restrict any use of the information to criminally investigate or prosecute any alcohol or drug abuse patient.[facility] NorthIn the event this information is protected by the Federal Confidentiality of Alcohol and Drug Abuse Patient Records regulations: The Federal rules restrict any use of the information to criminally investigate or prosecute any alcohol or drug abuse patient.[facility] NorthIn the event this information is protected by the Federal Confidentiality of Alcohol and Drug Abuse Patient Records regulations: The Federal rules restrict any use of the information to criminally investigate or prosecute any alcohol or drug abuse patient.[facility] NorthIn the event this information is protected by the Federal Confidentiality of Alcohol and Drug Abuse Patient Records regulations: The Federal rules restrict any use of the information to criminally investigate or prosecute any alcohol or drug abuse patient.[facility] NorthIn the event this information is protected by the Federal Confidentiality of Alcohol and Drug Abuse Patient Records regulations: The Federal rules restrict any use of the information to criminally investigate or prosecute any alcohol or drug abuse patient.[facility] NorthIn the event this information is protected by the Federal Confidentiality of Alcohol and Drug Abuse Patient Records regulations: The Federal rules restrict any use of the information to criminally investigate or prosecute any alcohol or drug abuse patient.[facility] NorthIn the event this information is protected by the Federal Confidentiality of Alcohol and Drug Abuse Patient Records regulations: The Federal rules restrict any use of the information to criminally investigate or prosecute any alcohol or drug abuse patient.[facility] NorthIn the event this information is protected by the Federal Confidentiality of Alcohol and Drug Abuse Patient Records regulations: The Federal rules restrict any use of the information to criminally investigate or prosecute any alcohol or drug abuse patient.[facility] NorthIn the event this information is protected by the Federal Confidentiality of Alcohol and Drug Abuse Patient Records regulations: The Federal rules restrict any use of the information to criminally investigate or prosecute any alcohol or drug abuse patient.[facility] NorthIn the event this information is protected by the Federal Confidentiality of Alcohol and Drug Abuse Patient Records regulations: The Federal rules restrict any use of the information to criminally investigate or prosecute any alcohol or drug abuse patient.[facility] Reason for Visit (unrecogniz ed section and content) Reason Comments Established Patient Follow-Up Reason Comments Radiology MRI Reason Comments Refill Request Reason Comments Appointment lvm for patient to c all so we can get her scheduled for a follow up and her labs Reason Onset Date Comments Refill Request 03/30/2023 Reason Comments Established Patient Follow-Up Reason Comments Appointment lvm for patient to c all so we can get her scheduled for her mris and follow up Specialty Diagnoses / Procedures Referred By James wang Referred To Contact MR IMAGING Diagnoses Multiple sclerosis (HCC) Procedures MRI BRAIN WO/W IVCON MRI BRAIN BRAIN STEM W/O W/CONTRAST MATERIAL Gonzalo Minor PA-C [address] [place] [address] Mr Imaging [place] [id number] Referral ID Status Reason Start Date Expiration Date V isits Requested Visits Authorized [id number] Closed Auto-Generate d Referral 04/17/2024 05/17/2025 1 1 Reason Comments Medication Preauthorization Dimethyl Fum arate 240 mg. Reason Onset Date Comments Refill Request 10/02/2024 Reason Comments Medication Preauthorization Tecfidera 24 0 mg. (MARKELL) Reason Comments Medication Problem Tecfidera Reason Onset Date Comments Refill Request 11/08/2024 Reason Onset Date Comments Refill Request 01/29/2025 Care Teams (unrecognized sec tion and content) Shellfish Manager Relationship Specialty Start Date End Date Lluvia Hernandes [address] [facility] [address] [place] [address] PCP - General 03/05/04 Shellfish Manager Relationship Specialty Start Date End Date Lluvia Hernandes [address] [facility] [address] [place], [place] [id number] PCP - General 03/05/04 Shellfish Manager Relationship Specialty Start Date End Date Lluvia Hernandes [address] [place] [address] [place] [address] PCP - General 03/05/04 Shellfish Manager Relationship Specialty Start Date End Date Lluvia Hernandes [address] [place] [address] [place] [address] PCP - General 03/05/04 Team Status: Active Member Role Status Dates Dr. Lluvia Hernandes MD Family Provider Active Dr. Lluvia Hernandes MD Primary Care Provider Active Team Status: Inactive Member Role Status Dates Dr. Lluvia Hernandes MD Primary Care Provider, Attendin g Provider Active Team Status: Inactive Member Role Status Dates Dr. Lluvia Hernandes MD Primary Care Prov ider, Attending Provider, Referring Provider Active Shellfish Manager Relationship Specialty Start Date End Date Lluvia Hernandes [address] [place] [address] [place] [address] PCP - General 03/05/04 Shellfish Manager Relationship Specialty Start Date End Date Lluvia Hernandes [address] [place] [address] [place] [address] PCP - General 03/05/04 Shellfish Manager Relationship Specialty Start Date End Date Lluvia Hernandes [address] [place] [address] [place] [address] PCP - General 03/05/04 Shellfish Manager Relationship Specialty Start Date End Date Lluvia Hernandes [address] [place] [address] [place] [address] PCP - General 03/05/04 Shellfish Manager Relationship Specialty Start Date End Date Lluvia Hernandes [address] [place] [address] [place] [address] PCP - General 03/05/04 Shellfish Manager Relationship Specialty Start Date End Date Lluvia Hernandes [address] [place] [address] [place] [address] PCP - General 03/05/04 Shellfish Manager Relationship Specialty Start Date End Date Lluvia Hernandes [address] [place] [address] [place] [address] PCP - General 03/05/04 Shellfish Manager Relationship Specialty Start Date End Date Lluvia Hernandes [address] [place] [address] [place] [address] PCP - General 03/05/04 Shellfish Manager Relationship Specialty Start Date End Date Lluvia Hernandes [address] [place] [address] [place] [address] PCP - General 03/05/04 Shellfish Manager Relationship Specialty Start Date End Date Lluvia Hernandes [address] [place] [address] [place] [address] PCP - General 03/05/04 Team Status: Active Member Role/Relationship Status Dates Dr. Lluvia Hernandes MD Family Provider Active Dr. Pedro Delarosa MD Primary Care Provider Active Team Status: Inactive Member Role/Relationship Status Dates Dr. Pedro Delarosa MD Primary Care Provider Active Start: February 13, 2025 End: February 13, 2025 Dr. Pedro Delarosa MD Attending Provider Active Start: February 13, 2025 End: February 13, 2025 Dr. Pedro Delarosa MD Referring Provider Active Start: February 13, 2025 End: February 13, 2025 Team Status: Active Member Role/Relationship Status Dates Dr. Lluvia Hernandes MD Primary care physician Active Dr. Pedro Delarosa MD Primary care physician Active Team Status: Inactive Member Role/Relationship Status Dates Dr. Pedro Delarosa MD Primary care physician Active Start: February 13, 2025 End: February 13, 2025 Dr. Pedro Delarosa MD Attending physician Active Start: February 13, 2025 End: February 13, 2025 Dr. Pedro Delarosa MD Referring Provider Active Start: February 13, 2025 End: February 13, 2025 Team Status: Inactive Member Role/Relationship Status Dates Dr. Pedro Delarosa MD Primary care physician Active Start: April 24, 2025 End: April 24, 2025 Dr. Pedro Delarosa MD Referring Provider Active Start: April 24, 2025 End: April 24, 2025 Valery Mejia NP, [employer] Attending physician Active Start: April 24, 2025 End: April 24, 2025 Goals (unrecognized section and content) Goals may be documented in a n alternate sectionGoals may be documented in an alternate sectionGoals may be documented in an alternate sectionGoals may be documented in an alternate sectionGoals may be documented in an alternate sectionGoals may be documented in an alternate section FOR RECORDS PERTAINING TO PATIENTS WHO ARE OR HAVE BEEN ENROLLED IN A CHEMICAL DEPENDENCY/SUBSTANCEABUSE PROGRAM, SOME INFORMATION MAY BE OMITTED. This clinical summary was aggregated from multiple sources. Caution should be exercised in using it in the provision of clinical care. This summary normalizes information from multiple sources, and as a consequence, information in this document may materially change the coding, format and clinical context of patient data. In addition, data may be omitted in some cases. CLINICAL DECISIONS SHOULD BE BASED ON THE PRIMARY CLINICAL RECORDS. [facility]. provides no warranty or guarantee of the accuracy or completeness of information in this document.
[2025-05-20 08:24] LABS: Follicle Stimulating Hormone 19.8 mIU/mL
[2025-05-23 01:07] LABS: Anti-Mullerian Hormone,Serum < 0.015 ng/mL (.)
== END | disposition home or self-care (01) ==
LOC: LAB 06:37
PROVIDERS: PCP Family Medicine; Referring Provider Nurse Practitioner Women's Health; Visit Provider Nurse Practitioner Women's Health
DX: N91.4 Secondary oligomenorrhea (principal); R73.09 Other abnormal glucose
CPT/HCPCS: 36415; 82670; 83001; 83036; 83516

== ENCOUNTER → 2025-05-28 | Outpatient (CLI) | payer OTHER, SELFPAY ==
--- NOTE | 2025-05-28 14:58 | BI_ITS ---
EXAM: BI/SCRN MAMM (CAD)W/SHANIA BILAT
== END | disposition home or self-care (01) ==
LOC: OPBI 14:57
PROVIDERS: PCP Family Medicine
DX: Z12.31 Encounter for screening mammogram for malignant neoplasm of breast (principal)
CPT/HCPCS: 77063; 77067